=== PATIENT | female | born 1945 | race Caucasian/White ===

== ENCOUNTER 2019-09-19 14:50 | Emergency (ER) | payer MEDICARE, OTHER, SELFPAY ==
[2019-09-19 14:59] VITALS: BP 148/55; PULSE 81; RESP 16; TEMP 36.6; O2SAT 97; BMI 24.5
--- NOTE | 2019-09-19 15:06 | ED_ITS ---
Entered by Marissa Fontaine, acting as scribe for Mara Ordonez DO HPI - Fall General: Chief Complaint: Head Injury Stated Complaint: fall Time Seen by Provider: 09/19/19 14:59 Source: patient Mode of arrival: wheelchair Limitations: no limitations History of Present Illness: HPI Narrative: 73 yo Female presents to ED with complaint of fall. Pt states that she got up to change her bed clothes because she got hot. Pt states that the next thing she knew she was waking up in the floor. Pt states that there was blood everywhere that was coming from her nose. Pt states that she also hit her eye. Pt states that she has a brain stimulator. Pt's family states that the patient falls a lot because of her Parkinson's disease. MD complaint: fall Fall from: standing Fall witnessed: no Place fall occurred: home Loss of consciousness: Yes Prolonged down time: no Symptoms prior to fall: none Location of injury: face Associated symptoms-after fall: Denies abdominal pain, chest pain or headache(s) Review of Systems General: Reports: 10 or more systems reviewed and unremarkable except in HPI and below Const: Denies: fever, chills or fatigue Eyes: Reports: other (bruising to right eye and forehead) ENMT: Denies: throat pain Card: Denies: chest pain or swelling of feet/ankles Resp: Denies: shortness of breath or productive cough GI: Denies: abdominal pain, nausea, vomiting, diarrhea, constipation or blood in stool : Denies: difficulty urinating Musc: Reports: joint pain and joint swelling; Denies: back pain or extremity swelling Skin/Breast: Denies: rash Neuro: Denies: headache, numbness in extremities or weakness in extremities PFS ED PFSH: Medical History Parkinsons disease Social History Smoking and tobacco status: never smoked Physical Exam Const: COMMON NORMALS: no apparent distress and oriented x3 GENERAL APPEARANCE: cooperative; not in distress HENMT: COMMON NORMALS: normocephalic HEAD & SCALP: normal to inspection and normocephalic FACE & SINUS: facial ecchymosis on the right periorbital and forehead NOSE: external nose abnormal (bridge of nose) nasal ecchymosis and nasal tenderness MOUTH: oral and palatal mucosa normal and lip normal THROAT: posterior oropharynx normal and tonsils normal Eye: PERIORBITAL: periorbital findings abnormal positive right periorbital swelling, periorbital tenderness and periorbital ecchymosis Neck/C-Spine: COMMON NORMALS: full ROM, no lymphadenopathy, supple and no meningeal signs GENERAL: Yes normal visual inspection and Yes trachea midline Chest: COMMONS NORMALS: inspection of chest normal Resp: COMMON NORMALS: normal respiratory effort and clear to auscultation bilaterally EFFORT & INSPECTION: Yes able to speak in complete sentences and No respiratory distress AUSCULTATION: clear to auscultation bilaterally, no rales, no rhonchi and no wheezes Cardio: COMMON NORMALS: regular rate, regular rhythm, S1 normal heart sound, S2 normal heart sound and no murmurs RATE: regular rate RHYTHM: regular rhythm HEART SOUNDS: S1 normal and S2 normal PERIPHERAL PULSES: radial pulses present and dorsalis pedis pulses present GI: COMMON NORMALS: normal to inspection, nondistended, normoactive bowel sounds, soft to palpation and non-tender INSPECTION: Yes normal to inspection AUSCULTATION: Yes normoactive bowel sounds PALPATION: Yes soft, No tender, No guarding and No rigid RECTAL EXAM: deferred : COMMON NORMALS: Yes no CVA tenderness BLADDER/KIDNEY EXAM: Yes no CVA tenderness Back/Pelvis: COMMON NORMALS: no CVA tenderness Extremity: COMMON NORMALS: full ROM, normal capillary refill, no calf tenderness and no pedal edema; negative for normal to inspection GENERAL: Yes normal exam except as noted RIGHT LOWER EXTREMITY: Yes knee joint (warmth and eccymosis) Right knee: Yes inspection Neuro: COMMON NORMALS: oriented x3, CN's II-XII intact bilaterally, moves all extremities and no focal motor deficits MENINGEAL SIGNS: Yes no meningeal signs Skin: COMMON NORMALS: no rashes or lesions noted GENERAL SKIN EXAM: no rashes or lesions noted Course Vital Signs: Vital signs: Vital Signs Temperature 97.8 F 09/19/19 14:59 Pulse Rate 81 09/19/19 14:59 Respiratory Rate 16 09/19/19 14:59 Blood Pressure 148/55 09/19/19 14:59 Pulse Oximetry 98 09/19/19 15:09 MDM - Fall Imaging Data^: CT C-Spine: Radiologist's impression: [address] [place] [address] CT Scan Report Signed Patient: Valeri Atkins #: [id number] : 8Acct#:[id number] Age/Sex: 73 / FADM Date: 09/19/19 Loc: ERRoom/Bed: Attending Dr: Ordering Provider/Ordering MD: Mara Ordonez DO Date of Service: 09/19/19 Procedure(s): CT cervical spin wo con* [id number] Accession Number(s): [id number] Report Number: [id number] PROCEDURE INFORMATION: Exam: CT Cervical Spine Without Contrast Exam date and time: 09/19/2019 3:26 PM Age: 73 years old Clinical indication: Injury or trauma; Initial encounter; Blunt trauma; Prior surgery; Surgery date: 6+ months; Surgery type: Brain stim; Patient HX: C/O pain p fall last pm; Additional info: Trauma/pain TECHNIQUE: Imaging protocol: Computed tomography images of the cervical spine without contrast. Total DLP: 378.79 mGy-cm Radiation optimization: All CT scans at this facility use at least one of these dose optimization techniques: automated exposure control; mA and/or kV adjustment per patient size (includes targeted exams where dose is matched to clinical indication); or iterative reconstruction. COMPARISON: CT Cervical Spine wo* [id number] 01/20/2019 2:47 PM FINDINGS: Tubes, catheters and devices: There electrodes along the left occipital scalp with leads extending inferiorly. Vertebrae: Mild grade 1 degenerative anterolisthesis of C4 on C5. Discs/Spinal canal/Neural foramina: There are degenerative changes throughout the visualized spine including marginal osteophyte formations, endplate degenerative changes, and facet arthropathy. These changes are most prominent across the C6-C7 level. Multilevel disc space narrowing. Soft tissues: Unremarkable. Lungs: Lung apices are normal. CT/CT cervical spin wo con* [id number] IMPRESSION: There are degenerative changes as described above. No evidence for acute fracture. Radiation Dose CTDIVOL = (mGy): DLP = 378.79 (mGy-cm) Dictated By:Kaela Yanez MD Signed By:Kaela Yanez MDSigned Date/Time:09/19/19 1601 DD/ 1600 CT Head: Radiologist's impression: [address] [place] [address] CT Scan Report Signed Patient: Valeri Atkins #: [id number] : 8Acct#:[id number] Age/Sex: 73 / FADM Date: 09/19/19 Loc: ERRoom/Bed: Attending Dr: Ordering Provider/Ordering MD: Mara Ordonez DO Date of Service: 09/19/19 Procedure(s): CT head wo con* [id number] Accession Number(s): [id number] Report Number: [id number] PROCEDURE INFORMATION: Exam: CT Head Without Contrast Exam date and time: 09/19/2019 3:26 PM Age: 73 years old Clinical indication: Injury or trauma; Initial encounter; Blunt trauma (contusions or hematomas); Consciousness not specified; Patient HX: C/O MAYBERRY p fall last pm - unknown loc PT is on elequis TECHNIQUE: Imaging protocol: Computed tomography of the head without contrast. Total DLP: 855.51 mGy-cm Radiation optimization: All CT scans at this facility use at least one of these dose optimization techniques: automated exposure control; mA and/or kV adjustment per patient size (includes targeted exams where dose is matched to clinical indication); or iterative reconstruction. COMPARISON: CT head wo con* [id number] 03/26/2019 3:36 PM FINDINGS: Brain: There is mild diffuse cerebral atrophy present, consistent with this patient's age. Periventricular and subcortical white matter low densities are present which at this age likely represent microvascular ischemic change. No evidence for large acute ischemic infarction. Please note acute ischemia can be occult by head CT. Ventricles: Normal. No ventriculomegaly. Bones/joints: There are electrodes implanted in the left temporal and left occipital scalp with leads extending superiorly to alejandro holes in the bifrontal calvarium terminating in the cerebral peduncles. Sinuses: Visualized sinuses are unremarkable. No fluid levels. Mastoid air cells: Visualized mastoid air cells are well aerated. Soft tissues: Unremarkable. Vasculature: Calcified plaque is present within the carotid siphons. CT/CT head wo con* [id number] IMPRESSION: There are senescent changes of the brain as described above. No evidence for large acute ischemic infarction or acute intracranial injury. Radiation Dose CTDIVOL = (mGy): DLP = 855.51 (mGy-cm) Dictated By:Kaela Yanez MD Signed By:Kaela Yanez MDSigned Date/Time:09/19/19 161 DD/ 1610 Coding Level of Care Code ED Toy Consultant for Chg Fwd Exam Comprehensive The documentation recorded by the Minal bolotn Carmen, accurately reflects the service I personally performed and the decisions made by , Mara Ordonez, DO
[2019-09-19 15:09] VITALS: O2SAT 98
--- NOTE | 2019-09-19 15:12 | CTR_ITS ---
PROCEDURE INFORMATION: Exam: CT Cervical Spine Without Contrast Exam date and time: 09/19/2019 3:26 PM Age: 73 years old Clinical indication: Injury or trauma; Initial encounter; Blunt trauma; Prior surgery; Surgery date: 6+ months; Surgery type: Brain stim; Patient HX: C/O pain p fall last pm; Additional info: Trauma/pain TECHNIQUE: Imaging protocol: Computed tomography images of the cervical spine without contrast. Total DLP: 378.79 mGy-cm Radiation optimization: All CT scans at this facility use at least one of these dose optimization techniques: automated exposure control; mA and/or kV adjustment per patient size (includes targeted exams where dose is matched to clinical indication); or iterative reconstruction. COMPARISON: CT Cervical Spine wo* [id number] 01/20/2019 2:47 PM FINDINGS: Tubes, catheters and devices: There electrodes along the left occipital scalp with leads extending inferiorly. Vertebrae: Mild grade 1 degenerative anterolisthesis of C4 on C5. Discs/Spinal canal/Neural foramina: There are degenerative changes throughout the visualized spine including marginal osteophyte formations, endplate degenerative changes, and facet arthropathy. These changes are most prominent across the C6-C7 level. Multilevel disc space narrowing. Soft tissues: Unremarkable. Lungs: Lung apices are normal. CT/CT cervical spin wo con* [id number] IMPRESSION: There are degenerative changes as described above. No evidence for acute fracture. Radiation Dose CTDIVOL = (mGy): DLP = 378.79 (mGy-cm)
--- NOTE | 2019-09-19 15:12 | CTR_ITS ---
PROCEDURE INFORMATION: Exam: CT Head Without Contrast Exam date and time: 09/19/2019 3:26 PM Age: 73 years old Clinical indication: Injury or trauma; Initial encounter; Blunt trauma (contusions or hematomas); Consciousness not specified; Patient HX: C/O MAYBERRY p fall last pm - unknown loc PT is on elequis TECHNIQUE: Imaging protocol: Computed tomography of the head without contrast. Total DLP: 855.51 mGy-cm Radiation optimization: All CT scans at this facility use at least one of these dose optimization techniques: automated exposure control; mA and/or kV adjustment per patient size (includes targeted exams where dose is matched to clinical indication); or iterative reconstruction. COMPARISON: CT head wo con* [id number] 03/26/2019 3:36 PM FINDINGS: Brain: There is mild diffuse cerebral atrophy present, consistent with this patient's age. Periventricular and subcortical white matter low densities are present which at this age likely represent microvascular ischemic change. No evidence for large acute ischemic infarction. Please note acute ischemia can be occult by head CT. Ventricles: Normal. No ventriculomegaly. Bones/joints: There are electrodes implanted in the left temporal and left occipital scalp with leads extending superiorly to alejandro holes in the bifrontal calvarium terminating in the cerebral peduncles. Sinuses: Visualized sinuses are unremarkable. No fluid levels. Mastoid air cells: Visualized mastoid air cells are well aerated. Soft tissues: Unremarkable. Vasculature: Calcified plaque is present within the carotid siphons. CT/CT head wo con* [id number] IMPRESSION: There are senescent changes of the brain as described above. No evidence for large acute ischemic infarction or acute intracranial injury. Radiation Dose CTDIVOL = (mGy): DLP = 855.51 (mGy-cm)
--- NOTE | 2019-09-19 15:12 | XRR_ITS ---
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 Views: 3 views. COMPARISON: [facility] Knee RIGHT 3 views 09/22/2018 4:59 PM FINDINGS: Bones/joints: Normal. Soft tissues: There is edema and/or hematoma in the soft tissues medial and anterior to the knee. XR/XR knee RT 3V* [id number] IMPRESSION: There is edema and/or hematoma in the soft tissues medial and anterior to the knee.
--- NOTE | 2019-09-19 16:44 | PC.NURSE ---
Patient ambulated in hallway without any difficult using walker.
[2019-09-19 17:28] VITALS: BP 145/63; PULSE 72; RESP 17; O2SAT 97
== END 2019-09-19 17:28 | disposition home or self-care (01) ==
LOC: ER 16:49
PROVIDERS: Emergency Provider Emergency Medicine; Family Provider Nurse Practitioner Family; PCP Nurse Practitioner Family
DX: S06.0X9A Concussion with loss of consciousness of unspecified duration, initial encounter (principal); S80.01XA Contusion of right knee, initial encounter; R58 Hemorrhage, not elsewhere classified; W19.XXXA Unspecified fall, initial encounter
CPT/HCPCS: 12345; 29530; 70450; 72125; 73562; 99282; 99283

== ENCOUNTER 2019-12-22 06:18 | Emergency (ER) | payer MEDICARE, OTHER, SELFPAY ==
[2019-12-22 06:25] VITALS: BP 111/71; PULSE 87; RESP 18; TEMP 36.5; O2SAT 98; BMI 24.9
--- NOTE | 2019-12-22 06:38 | W.ED.EXTPRO ---
HPI - Extremity Problem General: Chief complaint: Extremity Problem,Nontraumatic Stated complaint: R LEG PAIN Time Seen by Provider: 12/22/19 06:36 History of Present Illness: HPI Narrative: 74-year-old female presents the emergency room with complaint of left leg pain that began suddenly this morning woke her from sleep. She denies any trauma. She has Parkinson's she has a daughter in the room that states she found her this morning around 1230 laying on the floor in her room patient does not remember falling. She refers most of her pain to her left groin area to reproducible with palpation. She usually walks with a walker daughter says she did seem to be at least partially weightbearing when she helped get her up back into bed last night. She has a history of stroke and atrial fibrillation evidently and states she is on Eliquis she has been taking it regularly she denies any recent change in medications. No swelling in the leg. MD Complaint: extremity pain Onset (ago): hour(s) Pain Consistency: constant Location: right Quality: sharp Radiation: none Relieving factors: movement Exacerbating factors: range of motion, weight bearing and palpation Associated symptoms: Reports no associated symptoms and other (No shortness of breath); Deny chest pain, fever(s), rash or short of breath Context: other (Unattended fall last evening) Review of Systems Const: Denies: fever(s), chills, body aches, change in appetite, fatigue or malaise ENMT: Denies: throat pain, ear or mastoid pain, nasal discharge or nasal congestion Card: Denies: chest pain Resp: Denies: dyspnea, productive cough or non-productive cough GI: Denies: abdominal pain, nausea, vomiting, hematemesis, coffee ground emesis, diarrhea, constipation, bloating, hematochezia or melena : Denies: flank pain, difficulty voiding, dysuria, urinary frequency or urinary urgency Skin/Breast: Denies: rash or pruritus PFS ED PFSH: Medical History (Updated 12/22/19 @ 08:02 by Salty Gomez DO) Parkinsons disease Surgical History (Updated 12/22/19 @ 06:55 by Salty Gomez DO) H/O lumbosacral spine surgery H/O: hysterectomy History of tonsillectomy and adenoidectomy S/P appendectomy S/P deep brain stimulator placement Social History Smoking and tobacco status: never smoked Physical Exam Const: COMMON NORMALS: no acute distress GENERAL APPEARANCE: cooperative and comfortable ORIENTATION/CONSCIOUSNESS: Yes awake, Yes oriented to person, Yes oriented to place and Yes oriented to time Eye: COMMON NORMALS: Equal, round and reactive pupils present, EOMs intact bilaterally, conjunctivae normal and no scleral icterus CONJUNCTIVA: Yes conjunctivae normal PUPIL: Yes Equal, round and reactive pupils present Neck/C-Spine: COMMON NORMALS: full ROM, no lymphadenopathy, supple and no JVD Lymph: LYMPHATIC: no lymphadenopathy noted and no lymphedema noted Resp: COMMON NORMALS: normal respiratory effort, No retractions, No use of accessory muscles and clear to auscultation bilaterally AUSCULTATION: clear to auscultation bilaterally Cardio: COMMON NORMALS: no JVD, regular rate, regular rhythm and No murmurs present (Cardio) RATE: regular rate RHYTHM: regular rhythm GI: COMMON NORMALS: Soft to palpation and No hepatosplenomegaly present AUSCULTATION: Yes normoactive bowel sounds PALPATION: Yes Soft to palpation, No Tenderness to palpation present (GI), No Guarding due to palpation present (GI) and Yes No hepatosplenomegaly present Back/Pelvis: PELVIS: Yes tenderness over symphysis pubis on the right OTHER: Manipulation of the foot ankle tibia and knee are without any significant pain mild pain with manipulation of the hip exquisite pain with palpation over the right pubic rami Extremity: COMMON NORMALS: normal to inspection, capillary refill normal, no clubbing, cyanosis or edema, no calf tenderness and no pedal edema Neuro: SENSORIUM/ORIENTATION: Yes oriented to person, Yes oriented to place and Yes oriented to time Skin: COMMON NORMALS: no rashes or lesions noted GENERAL SKIN EXAM: no rashes or lesions noted Course Vital Signs: Vital signs: Vital Signs Temperature 97.7 F 12/22/19 06:25 Pulse Rate 75 12/22/19 08:15 Respiratory Rate 16 12/22/19 07:12 Blood Pressure 133/67 12/22/19 08:15 Pulse Oximetry 98 12/22/19 08:15 MDM - Extremity (Nontraumatic) MDM Narrative: Medical decision making narrative: Reviewed findings are no acute fractures. Pain patient has pain over greater trochanter. Radiology were reviewed x-ray is negative. Go ahead and discharge home can use tramadol as needed follow-up as needed. Lab Data: Labs: Lab Results 12/22/19 12/22/19 12/22/19 Range/Units 07:06 07:22 07:22 WBC 4.5 (4.0-10.0) 10^3/ uL RBC 3.96 L (4.1-5.3) 10^6/u L Hgb 11.8 (11.5-15.3) g/dL Hct 38.9 (37.0-47.0) % MCV 98.2 (81-99) fL MCH 29.8 (28.0-34.0) pg MCHC 30.3 (30.0-36.0) g/dL RDW 14.0 (12.1-15.1) % Plt Count 222 (130-400) 10^3/c mm MPV 10.5 H (7.4-10.4) fL Neut % (Auto) 47.9 % Lymph % (Auto) 36.0 % [place] % (Auto) 10.8 % Eos % (Auto) 4.0 % Baso % (Auto) 0.9 % Neut # (Auto) 2.1 (1.8-7.7) 10^3/u L Lymph # (Auto) 1.6 (0.8-4.8) 10^3/u L [place] # (Auto) 0.5 (0.2-0.9) 10^3/u L Eos # (Auto) 0.2 (0.0-0.8) 10^3/u L Baso # (Auto) 0.0 (0.0-0.1) 10^3/u L Nucleated RBC % (a uto) 0 % Nucleated RBCs # 0.0 /100WBC Sodium 141 (136-145) mmol/L Potassium 4.2 (3.5-5.1) mmol/L Chloride 103 (98-107) mmol/L Carbon Dioxide 28 (22-29) mmol/L Anion Gap 14.2 (5-19) BUN 23 (8-23) mg/dL Creatinine 1.1 H (0.5-0.9) mg/dL Glucose 95 (65-115) mg/dL Calculated Osmolal ity 289 (285-295) mOsm/k g Calcium 9.3 (8.5-10.5) mg/dL Total Bilirubin 0.2 (0.15-1.2) mg/dL AST 16 (0-32) U/L ALT < 5 (0-33) U/L Alkaline Phosphata se 114 H (35-105) IU/L Total Protein 6.3 L (6.6-8.7) g/dL Albumin 4.2 (3.5-5.2) g/dL Globulin 2.1 (1.3-4.6) g/dL Urine Color Yellow (Yellow) Urine Appearance Clear (CLEAR) Urine pH 7 (5-7) Ur Specific Gravit y 1.005 (1.005-1.030) Urine Protein Neg (Negative) Urine Glucose (UA) Norm (Normal) Urine Ketones Negative (Negative) Urine Blood Neg (Negative) Urine Nitrate Negative (Negative) Urine Bilirubin Neg (NEGATIVE) Urine Urobilinogen Norm (Negative) mg/dL Ur Leukocyte Fariba ase Negative (Negative) Imaging Data^: Xray Ortho: Radiologist's impression: RIGHT HIP HISTORY: Pain/ fall COMPARISON: None available. Right hip: No acute fracture or dislocation. Moderate narrowing of the hip joint. There is soft tissue edema lateral to the greater trochanter. XR/XR hip RT 2-3V wo/w pel* [id number] IMPRESSION: 1. No hip fracture. 2. Soft tissue injury lateral to the greater trochanter. Dictated By:Jen Grigsby DO Discharge Plan Discharge Patient Disposition: Home, Self-Care Clinical Impression: Fall at home, Greater trochanteric pain syndrome of left lower extremity Condition: Stable Prescriptions: No Action gabapentin 600 mg tablet 600 mg PO TID RF: 0 carbidopa-levodopa 50-200 mg tablet extended release 1 tab PO QID RF: 0 Aspir-81 81 mg Tablet,Delayed Release (Dr/Ec) 81 mg PO DAILY RF: 0 tramadol 50 mg tablet 50 mg PO Q4H PRN (Reason: Pain) RF: 0 amantadine HCl 100 mg capsule 100 mg PO BID RF: 0 citalopram 20 mg tablet 20 mg PO DAILY RF: 0 lorazepam 2 mg tablet 1 - 2 mg PO TID PRN (Reason: unknown) RF: 0 ropinirole 2 mg tablet 2 mg PO TID RF: 0 simvastatin 20 mg tablet 20 mg PO BEDTIME RF: 0 nortriptyline 10 mg capsule 10 mg PO BEDTIME RF: 0 omeprazole 20 mg capsule,delayed release(DR/EC) 20 mg PO QPM RF: 0 quetiapine 50 mg tablet 100 mg PO BEDTIME RF: 0 Eliquis 5 mg tablet 5 mg PO BID RF: 0 Discharge Orders: Discharge Order (Routine); Ordered 12/22/19 Ordered By: Salty Gomez Referrals: Rochelle Khan APN [Primary Care Provider] - Discharge Diet: Usual diet Discharge Activity: Resume usual activity Activity Restrictions/Additional Instructions: There are no fractures found on your x-ray. Recommend ice and use previously prescribed outpatient medications for pain control. Discharge Date/Time: 12/22/19 08:15 Coding Level of Care Code ED Spool Fixer for Diana Fwstanley Exam Comprehensive
--- NOTE | 2019-12-22 06:52 | XR_ITS ---
WS: [id number] RIGHT HIP HISTORY: Pain/ fall COMPARISON: None available. Right hip: No acute fracture or dislocation. Moderate narrowing of the hip joint. There is soft tissue edema lateral to the greater trochanter. XR/XR hip RT 2-3V wo/w pel* [id number] IMPRESSION: 1. No hip fracture. 2. Soft tissue injury lateral to the greater trochanter.
[2019-12-22 07:12] VITALS: BP 126/56; RESP 16; O2SAT 97
[2019-12-22 07:13] LABS: Add Urine Microscopic? NO
--- NOTE | 2019-12-22 07:14 | PC.NURSE ---
XR at bedside
[2019-12-22 07:18] LABS: Bilirubin Urine Neg (NEGATIVE); Blood Urine Neg (Negative); Glucose Urine UA Norm (Normal); Ketones Urine Negative (Negative); Leukocyte Esterase Urine Negative (Negative); Nitrate Urine Negative (Negative); Protein Urine Neg (Negative); Specific Gravity, Urine 1.005 (1.005-1.030); Urine Appearance Clear (CLEAR); Urine Color Yellow (Yellow); Urobilinogen Urine Norm (Negative); pH Urine 7 (5-7)
[2019-12-22 07:31] LABS: Basophils % 0.9 %; Eosinophils # 0.2 10^3/uL (0.0-0.8); Hematocrit 38.9 % (37.0-47.0); Hemoglobin 11.8 g/dL (11.5-15.3); Lymphocytes # 1.6 10^3/uL (0.8-4.8); Mean Corpuscular HGB Conc 30.3 g/dL (30.0-36.0); Mean Corpuscular Hemoglobin 29.8 pg (28.0-34.0); Mean Corpuscular Volume 98.2 fL (81-99); Mean Platelet Volume 10.5 fL (7.4-10.4); Monocytes # 0.5 10^3/uL (0.2-0.9); Monocytes % 10.8 %; Neutrophils # 2.1 10^3/uL (1.8-7.7); Neutrophils % 47.9 %; Nucleated Red Blood Cells % 0 %; Platelet Count 222 10^3/cmm (130-400); Red Blood Count 3.96 10^6/uL (4.1-5.3); White Blood Count 4.5 10^3/uL (4.0-10.0)
[2019-12-22 07:49] LABS: Alanine Aminotransferase < 5 U/L (0-33); Albumin Level 4.2 g/dL (3.5-5.2); Alkaline Phosphatase 114 IU/L (35-105); Anion Gap 14.2 (5-19); Aspartate Amino Transferase 16 U/L (0-32); Blood Urea Nitrogen 23 mg/dL (8-23); Calcium 9.3 mg/dL (8.5-10.5); Carbon Dioxide 28 mmol/L (22-29); Chloride 103 mmol/L (98-107); Globulin 2.1 g/dL (1.3-4.6); Glucose 95 mg/dL (65-115); Osmolality Calculated 289 mOsm/kg (285-295); Potassium 4.2 mmol/L (3.5-5.1); Sodium 141 mmol/L (136-145); Total Bilirubin 0.2 mg/dL (0.15-1.2); Total Protein 6.3 g/dL (6.6-8.7)
[2019-12-22] MEDS: HYDROcodone-acetaminophen 5-325 mg Tablet 1 TAB PO (08:12)
[2019-12-22 08:15] VITALS: BP 133/67; PULSE 75; O2SAT 98
== END 2019-12-22 08:15 | disposition home or self-care (01) ==
PROVIDERS: Emergency Provider Family Medicine; Family Provider Nurse Practitioner Family; PCP Nurse Practitioner Family
DX: G89.4 Chronic pain syndrome (principal); M25.552 Pain in left hip; Z79.82 Long term (current) use of aspirin; Z79.01 Long term (current) use of anticoagulants; G20 Parkinson's disease
CPT/HCPCS: 12345; 36415; 73502; 80053; 81003; 85025; 99282; 99283

== ENCOUNTER 2020-01-09 15:11 | Inpatient (IN) | payer MEDICARE, OTHER, SELFPAY ==
[2020-01-09] VITALS (7 sets, daily range): BP systolic 112–196; BP diastolic 41–106; PULSE 67–111; RESP 14–18; TEMP 36.7–37; O2SAT 88–97; BMI 24.0
--- NOTE | 2020-01-09 15:46 | CTR_ITS ---
PROCEDURE INFORMATION: Exam: CT Head Without Contrast Exam date and time: 01/09/2020 3:48 PM Age: 74 years old Clinical indication: Altered mental status/memory loss; Confusion or disorientation; Prior surgery; Surgery date: 6+ months; Surgery type: Patient unable to give this information due to confused state; Additional info: Weakness TECHNIQUE: Imaging protocol: Computed tomography of the head without contrast. Radiation optimization: All CT scans at this facility use at least one of these dose optimization techniques: automated exposure control; mA and/or kV adjustment per patient size (includes targeted exams where dose is matched to clinical indication); or iterative reconstruction. COMPARISON: No relevant prior studies available. RADIATION DOSE METRICS: Total DLP (mGy-cm): 832.59 FINDINGS: Tubes, catheters and devices: There are stimulator leads extending from the cerebral peduncles through the bilateral frontal lobes and frontal calvarium. Brain: Periventricular and subcortical white matter low densities are present which at this age likely represent microvascular ischemic change. Ventricles: Normal. No ventriculomegaly. Bones/joints: Unremarkable. No acute fracture. Sinuses: Visualized sinuses are unremarkable. No fluid levels. Mastoid air cells: Visualized mastoid air cells are well aerated. Soft tissues: Unremarkable. CT/CT head wo con* [id number] IMPRESSION: There are senescent changes of the brain as described above. No evidence for large acute ischemic infarction or acute intracranial injury. Deep brain stimulation leads are present. Radiation Dose CTDIVOL = (mGy): DLP = 832.59 (mGy-cm)
--- NOTE | 2020-01-09 15:46 | XRR_ITS ---
PROCEDURE INFORMATION: Exam: XR Chest, 1 View Exam date and time: 01/09/2020 4:15 PM Age: 74 years old Clinical indication: Other: Weakness TECHNIQUE: Imaging protocol: XR of the chest Views: 1 view. COMPARISON: No relevant prior studies available. FINDINGS: Tubes, catheters and devices: There is a stimulator device overlying the left glenoid. Lungs: Unremarkable. No consolidation. Pleural space: Unremarkable. No pleural effusion. No pneumothorax. Heart/Mediastinum: Unremarkable. No cardiomegaly. Bones/joints: Unremarkable. XR/XR chest 1V portable [id number] IMPRESSION: No acute findings.
--- NOTE | 2020-01-09 15:47 | ECG_ITS ---
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 Measurements Intervals [place] Rate: 70 P: 37 [place]: 199 QRS: -4 QRSD: 118 T: 77 QT: 460 QTc: 498 Interpretive Statements SINUS RHYTHM POSSIBLE ANTERIOR MYOCARDIAL INFARCTION , PROBABLY OLD [30 ms Q WAVE IN V3/V4, OR R < 0.2 mV IN V4] No previous ECG available for comparison Electronically Signed On 01-09-2020 19:08:09 CDT by Jose Dotson M.D. [id number]
--- NOTE | 2020-01-09 15:48 | ED_ITS ---
HPI - Neuro Symptoms/Deficit General: Chief Complaint: Neuro Symptoms/Deficit Stated Complaint: Worsening parkinson's symptoms Time Seen by Provider: 01/09/20 15:22 History of Present Illness: HPI Narrative: Patient has a history of Parkinson's disease. Her caregiver states that usually she is able to ambulate with a walker and also that her speech is quite understandable. For the last 4 days patient has not been able to walk without assistance even when using her walker and her speech has become largely unintelligible. Onset (ago): day(s) Timing confirmed by: family member and caregiver Location: speech and ataxia History of same: No Severity: severe Quality: weak Relieving factors: none Exacerbating factors: none Context: gradual onset and sudden onset Associated symptoms: Reports malaise and weakness Treatments Prior to Arrival: none Review of Systems General: Reports: 10 or more systems reviewed and unremarkable except in HPI and below Const: Reports: malaise Physical Exam Const: COMMON NORMALS: no acute distress, patient oriented x3, no limitations and alert HENMT: COMMON NORMALS: normocephalic, atraumatic, external ears normal and Normal external nose present HEAD & SCALP: normocephalic and atraumatic FACE & SINUS: normal facial exam NOSE: Normal external nose present EXTERNAL EAR: Yes external ears normal MOUTH: Normal oral and palatal mucosa present Neck/C-Spine: COMMON NORMALS: full ROM, no lymphadenopathy, supple, no meningeal signs and no JVD GENERAL: Yes normal visual inspection Resp: COMMON NORMALS: normal respiratory effort, No retractions, No use of accessory muscles and clear to auscultation bilaterally AUSCULTATION: clear to auscultation bilaterally Cardio: COMMON NORMALS: no JVD, regular rate and regular rhythm RATE: regular rate RHYTHM: regular rhythm GI: COMMON NORMALS: Normal to inspection, nondistended, normoactive bowel sounds present, Soft to palpation, non-tender, No hepatosplenomegaly present and no masses INSPECTION: Yes normal to inspection AUSCULTATION: Yes normoactive bowel sounds PALPATION: Yes Soft to palpation and Yes No hepatosplenomegaly present PERCUSSION: normal to percussion : COMMON NORMALS: Yes no CVA tenderness and Yes normal external appearance BLADDER/KIDNEY EXAM: Yes no CVA tenderness Back/Pelvis: COMMON NORMALS: no CVA tenderness, thoracic and lumbar spine normal to inspection, no thoracic nor lumbar tenderness, thoraco-lumbar ROM normal and straight leg raise negative bilaterally Extremity: COMMON NORMALS: normal to inspection, full ROM, capillary refill normal, no joint enlargement, no clubbing, cyanosis or edema, no calf tenderness and no pedal edema Neuro: COMMON NORMALS: patient oriented x3 and moves all extremities SENSORIUM/ORIENTATION: Yes alert MENINGEAL SIGNS: Yes no meningeal signs Psych: COMMON NORMALS: mental status grossly normal, Normal thought process present, cooperative, normal affect and speech normal SPEECH: Yes normal speech THOUGHT PROCESS: Normal thought process present Skin: COMMON NORMALS: no rashes or lesions noted, no wounds, turgor normal, no jaundice, no petechiae and no mottling GENERAL SKIN EXAM: no rashes or lesions noted and turgor normal Course Vital Signs: Vital signs: Vital Signs Temperature 98.1 F 01/09/20 15:25 Pulse Rate 74 01/09/20 15:25 Respiratory Rate 18 01/09/20 15:25 Blood Pressure 116/49 01/09/20 15:25 Pulse Oximetry 97 01/09/20 15:25 Coding Level of Care Code ED Director Consumer Affairs for Chg Connie
--- NOTE | 2020-01-09 16:07 | PC.NURSE ---
Patient to CT via stretcher.
[2020-01-09 16:12] LABS: Basophils % 0.7 %; Eosinophils # 0.1 10^3/uL (0.0-0.8); Hematocrit 37.5 % (37.0-47.0); Hemoglobin 11.4 g/dL (11.5-15.3); Lymphocytes # 1.1 10^3/uL (0.8-4.8); Lymphocytes % 19.5 %; Mean Corpuscular HGB Conc 30.4 g/dL (30.0-36.0); Mean Corpuscular Hemoglobin 29.5 pg (28.0-34.0); Mean Corpuscular Volume 96.9 fL (81-99); Mean Platelet Volume 11.6 fL (7.4-10.4); Monocytes # 0.6 10^3/uL (0.2-0.9); Neutrophils % 67.4 %; Nucleated Red Blood Cells % 0 %; Platelet Count 219 10^3/cmm (130-400); Red Blood Count 3.87 10^6/uL (4.1-5.3); Red Cell Distribution Width 14.4 % (12.1-15.1); White Blood Count 5.5 10^3/uL (4.0-10.0)
[2020-01-09 16:23] LABS: Troponin(5th) Baseline 19 ng/L (0-10)
[2020-01-09] MEDS: haloperidol inj 5 mg/mL INJ 1 mL IVP (16:25)
[2020-01-09 16:38] LABS: Alanine Aminotransferase < 5 U/L (0-33); Albumin Level 4.6 g/dL (3.5-5.2); Alkaline Phosphatase 112 IU/L (35-105); Anion Gap 16.6 (5-19); Aspartate Amino Transferase 21 U/L (0-32); Blood Urea Nitrogen 20 mg/dL (8-23); Calcium 9.4 mg/dL (8.5-10.5); Carbon Dioxide 28 mmol/L (22-29); Chloride 100 mmol/L (98-107); Globulin 1.9 g/dL (1.3-4.6); Glucose 92 mg/dL (65-115); Lipase 24 U/L (13-60); NT Pro B Type Natriuretic Pept 313 pg/mL (0-125); Osmolality Calculated 286 mOsm/kg (285-295); Potassium 4.6 mmol/L (3.5-5.1); Sodium 140 mmol/L (136-145); Total Bilirubin 0.4 mg/dL (0.15-1.2); Total Protein 6.5 g/dL (6.6-8.7)
[2020-01-09 17:17] LABS: Add Urine Microscopic? NO
[2020-01-09 17:19] LABS: Bilirubin Urine Neg (NEGATIVE); Blood Urine Neg (Negative); Glucose Urine UA Norm (Normal); Ketones Urine Negative (Negative); Leukocyte Esterase Urine Negative (Negative); Nitrate Urine Negative (Negative); Protein Urine Neg (Negative); Specific Gravity, Urine 1.015 (1.005-1.030); Urine Appearance Clear (CLEAR); Urine Color Straw (Yellow); Urobilinogen Urine Norm (Negative); pH Urine 7 (5-7)
[2020-01-09 17:46] LABS: Troponin 5 2HR 14.96 ng/L (0-10)
--- NOTE | 2020-01-09 17:47 | ECG_ITS ---
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 Measurements Intervals [place] Rate: 71 P: 55 RI: 211 QRS: 10 QRSD: 116 T: 77 QT: 451 QTc: 493 Interpretive Statements SINUS RHYTHM WITH FIRST DEGREE AV BLOCK LOW QRS VOLTAGE IN PRECORDIAL LEADS [QRS DEFLECTION < 1.0 mV IN CHEST LEADS] MODERATE INTRAVENTRICULAR CONDUCTION DELAY [105+ ms QRS DURATION, 80+ ms Q/S IN V1/V2, NO Q AND 60+ ms R IN I/aVL/V5/V6] PROLONGED QT INTERVAL INTERPRETATION BASED ON A DEFAULT AGE OF 40 YEARS Compared to ECG 01/09/2020 16:08:36 First degree AV block now present Low QRS voltage now present Intraventricular conduction delay now present Prolonged QT interval now present Myocardial infarct finding no longer present Electronically Signed On 01-09-2020 19:11:42 CDT by Jose Dotson M.D. [email or web address] [id number] [place]
[2020-01-09 18:06] LABS: Troponin 5 2HR Delta -4.04 ABS# (0-10)
--- NOTE | 2020-01-09 18:58 | P.HP_ITS ---
Providers/Chief Complaint Admitting Physician: Lexis Ray MD Primary Care Provider: Rochelle Khan APN Chief Complaint: stroke like symptoms History of Present Illness Maria Atkins is a 74 year old female with a past medical history of Parkinson disease, currently on carbidopa levodopa and also with a deep brain stimulator in place, the bacterial culture scheduled to be replaced later in December. She follows with a neurologist Dr. Jensen Aaron at [facility] in [facility]. Over the past week she has had a rapid decline wearing her ataxia and involuntary movements have become worse. They appear to be worsening by dehydration or any minimal stress such as missing a meal. Today the son noted that her speech is more slurred than usual and her face seem to be more asymmetric. Because of her worsening mobility, son is finding it increasingly difficult to take care of her at home. She does also have a history of hallucinations and is currently on Seroquel. She tends to . CT of the head was performed upon presentation which showed senescent changes of the brain without evidence of large acute ischemic infarction or acute intracranial injury. She has a history of several strokes in the past, for which she is currently on Eliquis 5 mg p.o. daily. She normally ambulates with a wheelchair or with assistive support from her son. There have been no recent medication changes. ROS otherwise negative for any fever, contact with known call with patient, cough chest pain dyspnea palpitations or syncope. Review of Systems General: Reports: 10 or more systems reviewed and unremarkable except in HPI and below Const: Denies: fever(s), chills or body aches Eyes: Denies: change in vision, blurry vision or photophobia ENMT: Denies: throat pain, enlarged tonsils, odynophagia, hoarseness or nasal congestion Card: Denies: chest pain, palpitations, irregular heart rhythm, edema, swelling of feet/ankles, lightheadedness, pre-syncope, dyspnea on exertion or orthopnea Resp: Denies: dyspnea, productive cough, non-productive cough, wheezing, stridor, pain on inspiration, change in phlegm color, hemoptysis or chest congestion GI: Denies: abdominal pain, nausea, vomiting, hematemesis, coffee ground emesis, dysphagia, heartburn, diarrhea, constipation, GI cramping, change in stool character, hematochezia or melena : Denies: flank pain, difficulty voiding, dysuria, urinary frequency, urinary urgency, urinary hesitancy or hematuria Musc: Denies: neck pain, back pain, extremity pain, joint swelling, joint warmth or deformity Neuro: Denies: headache(s), numbness in extremities, weakness in extremities, sensory changes, difficulty walking, frequent falls, dizziness, vertigo, behavioral changes, Slurred speech present or seizure-like activity Psych: Denies: anxiety, depression, suicidal ideation or homicidal ideation Endo: Denies: polyuria, polydipsia, tired all the time, cold intolerance or hot flashes Axvier/Lymph: Denies: easy bruising or easy bleeding Medications/Allergies Home Medications Medication Instructions Recorded Confirmed Last Taken Type amantadine HCl 100 mg PO BID 01/09/20 01/09/20 01/08/20 History apixaban [Eliquis] 5 mg PO DAILY 01/09/20 01/09/20 01/08/20 History carbidopa-levodopa 1 tab PO QID 01/09/20 01/09/20 01/09/20 History citalopram 20 mg PO DAILY 01/09/20 01/09/20 01/08/20 History gabapentin 600 mg PO TID 01/09/20 01/09/20 01/09/20 History nortriptyline 10 mg PO BEDTIME 01/09/20 01/09/20 01/08/20 History omeprazole 20 mg PO DAILY 01/09/20 01/09/20 01/09/20 History quetiapine 50 mg PO DAILY 01/09/20 01/09/20 01/08/20 History ropinirole 2 mg PO TID 01/09/20 01/09/20 01/09/20 History simvastatin 20 mg PO DAILY 01/09/20 01/09/20 01/08/20 History tizanidine 4 mg PO DAILY PRN 01/09/20 01/09/20 01/09/20 History tramadol 50 mg PO Q4H PRN 01/09/20 01/09/20 01/09/20 History Allergies Allergy/AdvReac Type Severity Reaction Status Date / Time Sulfa (Sulfonamide Allergy Unknown Unknown Verified 01/09/20 16:53 Antibiotics) PFSH Acute PFSH: Medical History (Updated 01/09/20 @ 19:11 by Lexis Ray MD) Adult failure to thrive Ataxia CVA (cerebral vascular accident) Dysphagia Parkinson's disease Progressive neurologic decline Vitals/I&O/Wt Last Vital Signs Temp 98.1 F 01/09/20 15:25 Pulse 74 01/09/20 15:25 Resp 18 01/09/20 15:25 BP 116/49 01/09/20 15:25 Pulse Ox 97 01/09/20 15:25 Weight last 48 hrs Weight 63.503 kg Physical Exam Narrative: EXAM NARRATIVE: GEN: Awake, alert, speech is slurred with several involuntary jerking movements. Patient appears to be aware if these movements. 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 Multiple coarse jerks and tremors noted. facial asymmetry +, R side of face appears less expressive compared to left. Data : 01/09/20 15:30 01/09/20 15:30 Micro: Microbiology 01/09/20 16:00 Blood Culture - Preliminary Blood SPECIMEN COLLECTED 01/09/20 15:55 Blood Culture - Preliminary Blood SPECIMEN COLLECTED A&P Assessment and plan (1) Adult failure to thrive: Status: Acute (2) Ataxia: Status: Acute (3) Progressive neurologic decline: Status: Acute (4) Parkinson's disease: Status: Acute (5) Dehydration: Status: Acute Additional A&P Information Admit to Med/surg # Advanced Parkinsons' disease with more acute decline over the past week Suspect that advancing disease may the most likely cause, however given h/o recurrent CVAs in the past and relatively newly noted facial asymmetry and worsened dysarthria, cannot r/o CVA. Not a tPA candidate for multiple reasons incl unclear timing of onset and being on chronic anticoagulation with Eliquis. Continue Eliquis, statins for now Continue carbidopa/levodopa at home dose Continue tizanidine Tramadol and prn morphine for pain control Continue quetapine for hallucinations and cognitive symptoms which appear consistent with dementia IV hydration as patient has not had adequate po intake through the week and on exam has dry skin with poor turgor, dry oropharyngeal mucosa and lips. DNR/DNI Dispo: retirement NH placement as family unable to care for her at home due to advancing disease Attestations Medical Necessity Statement*: >2midnight anticipated for progressive neurological disease, IV fluids, disposition Coding Level of Care Code Acute Distance Learning Technician for g Fwd Diagnoses Adult failure to thrive R62.7 Ataxia R27.0 Progressive neurologic decline R29.818 Parkinson's disease G20 Dehydration E86.0
[2020-01-09] MEDS: dextrose 5%-sod chloride 0.9% 1,000 ML 75 ML IV (21:28)
[2020-01-09] MEDS: gabapentin 300 mg Capsule 600 MG PO (21:29)
[2020-01-09] MEDS: carbidopa-levodopa ER 50-200mg Tablet 1 EACH PO (21:29)
[2020-01-09] MEDS: ropinirole 2 mg Tablet PO (21:29)
[2020-01-09] MEDS: nortriptyline 10 mg Capsule PO (21:30)
--- NOTE | 2020-01-09 21:47 | ECG_ITS ---
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 Measurements Intervals [place] Rate: 66 P: 60 IA: 220 QRS: 42 QRSD: 118 T: 85 QT: 462 QTc: 487 Interpretive Statements SINUS RHYTHM WITH FIRST DEGREE AV BLOCK LOW QRS VOLTAGE IN PRECORDIAL LEADS [QRS DEFLECTION < 1.0 mV IN CHEST LEADS] POSSIBLE ANTERIOR MYOCARDIAL INFARCTION [30 ms Q WAVE IN V3/V4, OR R < 0.2 mV IN V4], PROBABLY OLD Compared to ECG 01/09/2020 17:47:36 Myocardial infarct finding now present Intraventricular conduction delay no longer present Prolonged QT interval no longer present Electronically Signed On 01-10-2020 16:42:50 CDT by Jose Dotson M.D. [id number]
[2020-01-09] MEDS: tizanidine 4 mg Tablet PO (22:00)
[2020-01-09 22:24] LABS: Troponin 5 6HR 18.32 ng/L (0-10)
[2020-01-09 22:36] LABS: Troponin 5 6HR Delta -0.68 ng/L (0-12)
[2020-01-10] VITALS: BP 108/52; PULSE 61; RESP 16; TEMP 36.2; O2SAT 92
[2020-01-10 04:00] VITALS: BP 124/54; PULSE 70; RESP 16; TEMP 36.7; O2SAT 93
[2020-01-10 04:08] LABS: Basophils # 0.1 10^3/uL (0.0-0.1); Eosinophils # 0.1 10^3/uL (0.0-0.8); Eosinophils % 2.8 %; Hematocrit 35.5 % (37.0-47.0); Hemoglobin 10.6 g/dL (11.5-15.3); Lymphocytes # 1.2 10^3/uL (0.8-4.8); Lymphocytes % 22.7 %; Mean Corpuscular HGB Conc 29.9 g/dL (30.0-36.0); Mean Platelet Volume 11.3 fL (7.4-10.4); Monocytes # 0.5 10^3/uL (0.2-0.9); Monocytes % 10.7 %; Neutrophils # 3.18 10^3/uL (1.8-7.7); Neutrophils % 62.6 %; Nucleated Red Blood Cells % 0 %; Platelet Count 216 10^3/cmm (130-400); Red Blood Count 3.66 10^6/uL (4.1-5.3); Red Cell Distribution Width 14.1 % (12.1-15.1); White Blood Count 5.1 10^3/uL (4.0-10.0)
[2020-01-10 04:29] LABS: Alanine Aminotransferase < 5 U/L (0-33); Albumin Level 4.1 g/dL (3.5-5.2); Alkaline Phosphatase 97 IU/L (35-105); Anion Gap 11.2 (5-19); Aspartate Amino Transferase 22 U/L (0-32); Blood Urea Nitrogen 15 mg/dL (8-23); Calcium 9.1 mg/dL (8.5-10.5); Carbon Dioxide 31 mmol/L (22-29); Chloride 105 mmol/L (98-107); Globulin 2.4 g/dL (1.3-4.6); Glucose 110 mg/dL (65-115); Osmolality Calculated 293 mOsm/kg (285-295); Potassium 4.2 mmol/L (3.5-5.1); Sodium 143 mmol/L (136-145); Total Bilirubin 0.4 mg/dL (0.15-1.2); Total Protein 6.5 g/dL (6.6-8.7)
[2020-01-10 07:47] VITALS: BP 146/90; PULSE 81; RESP 18; TEMP 36.5; O2SAT 94
[2020-01-10] MEDS: atorvastatin 40 mg Tablet 20 MG PO (08:43)
[2020-01-10] MEDS: ropinirole 2 mg Tablet PO ×2 (08:44→14:58)
[2020-01-10] MEDS: citalopram 20 mg Tablet PO (08:44)
[2020-01-10] MEDS: quetiapine 25 mg Tablet 50 MG PO (08:44)
[2020-01-10] MEDS: gabapentin 300 mg Capsule 600 MG PO ×2 (08:44→14:58)
[2020-01-10] MEDS: pantoprazole DR 40 mg Tablet PO (08:45)
[2020-01-10] MEDS: apixaban 5 mg Tablet PO (08:45)
[2020-01-10] MEDS: carbidopa-levodopa ER 50-200mg Tablet 1 EACH PO ×2 (08:45→14:22)
[2020-01-10] MEDS: dextrose 5%-sod chloride 0.9% 1,000 ML 75 ML IV (10:10)
--- NOTE | 2020-01-10 10:29 | PC.CHAP ---
Pastoral Care Encounter/Spiritual Assessment Type of Contact [] Declined fundraising manager visit [] Patient/Family/Request visit [] Outpatient visit [] Follow-up visit [] Physician referral [] Code/Alert [] Routine visit [] Staff referral [] Actively dying [] Patient sleeping [] Family support [] [] Out of room [] Palliative care [] [] Receiving care in room [] Pre-surgical visit [] Trauma [] Long length of stay [] ICU visit [] Other: Relational/Emotional Strength [] Patient feels connected with others/family/visitors/staff [] Distress [] Loneliness/isolation [] Abandonment Spirituality of Patient [] Person of Leta [] Attends Yazdanism of their Leta [] Believes in Prayer [] Reads Bible or Mandaeism materials [] There are Spiritual issues to be addressed Carpet 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 Supervisor Interventions [] Prayer [] Active listening [] Non-anxious presence [] Spiritual/emotional support [] Crisis/trauma care [] Spiritual counseling [] Bereavement support [] Provided bereavement packet [] Provided Bible/devotional materials [] Provided toy/stuffed animal, coloring book to patient or family member [] Provided Communion [] Anointing/[place] [] Salvation [] Completed spiritual assessment [] Other: Impact on Illness or Injury [] Angry [] Fearful [] Anxious [] Often cries [] Exhaustion [] Unable to work [] Unable to attend congregational [] Unable to walk/stand [] Unable to read [] Unable to drive [] Unable to eat/drink [] Unable to sleep [] Unable to be with family [] Patient intubated [] Other: Summary with doc follow up Time spent with patient
[2020-01-10 11:43] VITALS: BP 129/73; PULSE 68; RESP 18; TEMP 36.6; O2SAT 94
--- NOTE | 2020-01-10 15:05 | PM.DCS ---
Discharge Providers Date of Admission: 01/09/20 18:09 Date of Discharge: January 10, 2020 Attending Provider at Admission: Lexis Ray MD Attending Provider at Discharge: Alexander Galaviz MD Primary Care Provider: Rochelle Khan APN Diagnoses at Discharge Discharge Diagnosis (1) Adult failure to thrive: Status: Acute (2) Ataxia: Status: Acute (3) Progressive neurologic decline: Status: Acute (4) Parkinson's disease: Status: Acute (5) Dehydration: Status: Acute Reason for Visit Reason for Visit: stroke like symptoms Hospital Course Discharge Summary: Maria Atkins is a 74 year old female with a past medical history of Parkinson disease, currently on carbidopa levodopa and also with a deep brain stimulator in place, the battery replacement scheduled to be replaced later in December. She follows with a neurologist Dr. Jensen Aaron at [facility] in [facility]. Over the past week she has had a rapid decline wearing her ataxia and involuntary movements have become worse. They appear to be worsening by dehydration or any minimal stress such as missing a meal. Today the son noted that her speech is more slurred than usual and her face seem to be more asymmetric. Because of her worsening mobility, son is finding it increasingly difficult to take care of her at home. She does also have a history of hallucinations and is currently on Seroquel. She tends to . CT of the head was performed upon presentation which showed senescent changes of the brain without evidence of large acute ischemic infarction or acute intracranial injury. She has a history of several strokes in the past, for which she is currently on Eliquis 5 mg p.o. daily. She normally ambulates with a wheelchair or with assistive support from her son. There have been no recent medication changes. ROS otherwise negative for any fever, contact with known call with patient, cough chest pain dyspnea palpitations or syncope. Her blood work on admission was pretty unremarkable with a white count of 5.5 hemoglobin of 11.4, sodium of 140, creatinine of 1.6(no baseline in the system), alkaline phosphatase of 112, normal troponins, BNP of 313 UA negative for UTI Patient was admitted to the hospital now started on IV fluids for gentle hydration. Her kidney numbers improved and creatinine on discharge was 1.3. For further care and goals of care were discussed with the son. He states he would like to look into placement at long term but does not think he is ready for that right now. For safe discharge and help for son with care of Ms. Atkins home health was discussed and he agreed. Patient's care was also discussed with her outpatient neurosurgeon Dr. Dukes at [facility]. She states she would try to see if she can prepone The appointment for battery replacement. Patient was found to be on Eliquis because of her history of CVA. It was discussed with the son that given her advanced age, advanced parkinsonism she is at a higher risk of hemorrhagic stroke because of a fall rather than a thromboembolic stroke at this time. Son agreed and stated that at this time it would be best if patient is not on Eliquis so the medication has been stopped. As patient was stable, at her baseline no oxygen requirement, hemodynamically stable she was discharged back home with home health with her caregivers son. Physical Exam Narrative: EXAM NARRATIVE: GEN: Awake, alert, speech is slurred with several involuntary jerking movements. Patient appears to be aware if these movements. 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 Multiple coarse jerks and tremors noted. facial asymmetry +, R side of face appears less expressive compared to left. Discharge Data Data Completed and Pending: Completed Studies During Hospitalization Category Date Time Status CT head wo con* [id number] Urgent Cat Scan 01/09/20 15:46 Completed XR chest 1V mckenzie ble [id number] Urgent Exams 01/09/20 15:46 Completed Pending at discharge Category Date Time Status Blood Culture Sta t Lab 01/09/20 16:00 Results Complete Blood Co unt w/Auto AM LABS Lab 01/11/20 04:00 Ordered Complete Blood Co unt w/Auto AM LABS Lab 01/12/20 04:00 Ordered Comprehensive Met abolic Panel AM LA BS Lab 01/11/20 04:00 Ordered Comprehensive Met abolic Panel AM LA BS Lab 01/12/20 04:00 Ordered Labs from last 24 hours 01/10/20 01/10/20 01/09/20 03:31 03:31 21:50 WBC 5.1 RBC 3.66 L Hgb 10.6 L Hct 35.5 L MCV 97.0 MCH 29.0 MCHC 29.9 L RDW 14.1 Plt Count 216 MPV 11.3 H Neut % (Auto) 62.6 Lymph % (Auto) 22.7 [place] % (Auto) 10.7 Eos % (Auto) 2.8 Baso % (Auto) 1.0 Neut # (Auto) 3.18 Lymph # (Auto) 1.2 [place] # (Auto) 0.5 Eos # (Auto) 0.1 Baso # (Auto) 0.1 Nucleated RBC % (a uto) 0 Nucleated RBCs # 0.0 Sodium 143 Potassium 4.2 Chloride 105 Carbon Dioxide 31 H Anion Gap 11.2 BUN 15 Creatinine 1.3 H Glucose 110 Calculated Osmolal ity 293 Lactate Calcium 9.1 Total Bilirubin 0.4 AST 22 ALT < 5 Alkaline Phosphata se 97 Troponin T Baselin e Troponin T 120 Min tangirnaq Delta Troponin T Troponin T Hi Sens 6Hr 18.32 H Troponin T Hi Sens 6Hr Delta -0.68 L NT-Pro-B Natriuret Pep Total Protein 6.5 L Albumin 4.1 Globulin 2.4 Lipase Urine Color Urine Appearance Urine pH Ur Specific Gravit y Urine Protein Urine Glucose (UA) Urine Ketones Urine Blood Urine Nitrate Urine Bilirubin Urine Urobilinogen Ur Leukocyte Fariba ase 01/09/20 01/09/20 01/09/20 17:24 17:02 16:00 WBC RBC Hgb Hct MCV MCH MCHC RDW Plt Count MPV Neut % (Auto) Lymph % (Auto) [place] % (Auto) Eos % (Auto) Baso % (Auto) Neut # (Auto) Lymph # (Auto) [place] # (Auto) Eos # (Auto) Baso # (Auto) Nucleated RBC % (a uto) Nucleated RBCs # Sodium Potassium Chloride Carbon Dioxide Anion Gap BUN Creatinine Glucose Calculated Osmolal ity Lactate 1.0 Calcium Total Bilirubin AST ALT Alkaline Phosphata se Troponin T Baselin e Troponin T 120 Min tangirnaq 14.96 H Delta Troponin T -4.04 L Troponin T Hi Sens 6Hr Troponin T Hi Sens 6Hr Delta NT-Pro-B Natriuret Pep Total Protein Albumin Globulin Lipase Urine Color Straw Urine Appearance Clear Urine pH 7 Ur Specific Gravit y 1.015 Urine Protein Neg Urine Glucose (UA) Norm Urine Ketones Negative Urine Blood Neg Urine Nitrate Negative Urine Bilirubin Neg Urine Urobilinogen Norm Ur Leukocyte Fariba ase Negative 01/09/20 01/09/20 01/09/20 15:30 15:30 15:30 WBC 5.5 RBC 3.87 L Hgb 11.4 L Hct 37.5 MCV 96.9 MCH 29.5 MCHC 30.4 RDW 14.4 Plt Count 219 MPV 11.6 H Neut % (Auto) 67.4 Lymph % (Auto) 19.5 [place] % (Auto) 10.0 Eos % (Auto) 2.0 Baso % (Auto) 0.7 Neut # (Auto) 3.70 Lymph # (Auto) 1.1 [place] # (Auto) 0.6 Eos # (Auto) 0.1 Baso # (Auto) 0.0 Nucleated RBC % (a uto) 0 Nucleated RBCs # 0.0 Sodium 140 Potassium 4.6 Chloride 100 Carbon Dioxide 28 Anion Gap 16.6 BUN 20 Creatinine 1.6 H Glucose 92 Calculated Osmolal ity 286 Lactate Calcium 9.4 Total Bilirubin 0.4 AST 21 ALT < 5 Alkaline Phosphata se 112 H Troponin T Baselin e 19 H Troponin T 120 Min tangirnaq Delta Troponin T Troponin T Hi Sens 6Hr Troponin T Hi Sens 6Hr Delta NT-Pro-B Natriuret Pep 313 H Total Protein 6.5 L Albumin 4.6 Globulin 1.9 Lipase 24 Urine Color Urine Appearance Urine pH Ur Specific Gravit y Urine Protein Urine Glucose (UA) Urine Ketones Urine Blood Urine Nitrate Urine Bilirubin Urine Urobilinogen Ur Leukocyte Fariba ase Vitals: Last Vital Signs Temp 97.9 F 01/10/20 11:43 Pulse 68 01/10/20 11:43 Resp 18 01/10/20 11:43 BP 129/73 01/10/20 11:43 Pulse Ox 94 01/10/20 11:43 Discharge Plan Discharge Patient Disposition: Home Health Service Condition: Fair Prescriptions: New aspirin 81 mg Tablet,Delayed Release (Dr/Ec) 81 mg PO DAILY Qty: 30 RF: 0 Continued gabapentin 600 mg tablet 600 mg PO TID RF: 0 tizanidine 4 mg tablet 4 mg PO DAILY PRN (Reason: muscle spasms) RF: 0 carbidopa-levodopa 50-200 mg tablet extended release 1 tab PO QID RF: 0 tramadol 50 mg tablet 50 mg PO Q4H PRN (Reason: Pain) RF: 0 amantadine HCl 100 mg capsule 100 mg PO BID RF: 0 citalopram 20 mg tablet 20 mg PO DAILY RF: 0 ropinirole 2 mg tablet 2 mg PO TID RF: 0 simvastatin 20 mg tablet 20 mg PO DAILY RF: 0 nortriptyline 10 mg capsule 10 mg PO BEDTIME RF: 0 omeprazole 20 mg capsule,delayed release(DR/EC) 20 mg PO DAILY RF: 0 quetiapine 50 mg tablet 50 mg PO DAILY RF: 0 Discontinued Eliquis 5 mg tablet 5 mg PO DAILY RF: 0 Discharge Orders: Discharge Order (Routine); Ordered 01/10/20 Ordered By: Alexander Galaviz Referrals: Rochelle Khan APN [Primary Care Provider] - Discharge Diet: Advance as tolerated Discharge Activity: Resume usual activity Discharge Attestations Time Spent in Discharge Care*: greater than 30 min Specific Discharge Activities: Specific discharge activities: educating and/or supporting family/caregiver, discussing with pcp/other providers, discussing with field nurse case manager/social workers/dc planners, documenting/other paperwork and evaluating patient/reviewing data Status at Discharge: Cognitive status at discharge: mildly impaired cognition, Behavioral status at discharge: cooperative, Functional status at discharge: other assisted ambulation Overall status at discharge: patient is back to baseline Quality Metrics Clinical Quality Measures During this hospital stay, did patient experience: None Coding Level of Care Code Acute Sales Assistant Entertainment [employer] Media for Diana Rosales Diagnoses Adult failure to thrive R62.7 Ataxia R27.0 Progressive neurologic decline R29.818 Parkinson's disease G20 Dehydration E86.0
[2020-01-10 15:35] VITALS: BP 153/70; PULSE 68; RESP 18; TEMP 36.3; O2SAT 90
--- NOTE | 2020-01-10 17:31 | PC.NURSE ---
PT DISCHARGED TO HOME @ 5288
[2020-01-10 17:32] VITALS: BP 153/70; PULSE 68; RESP 18; TEMP 36.3; O2SAT 90
== END 2020-01-10 17:30 | disposition home health service (06) | DRG 57 ==
LOC: ER 17:29 → MEDSURG 19:49
PROVIDERS: Family Medicine; Admitting Provider Student in an Organized Health Care Education/Training Program; PCP Nurse Practitioner Family; Visit Provider Student in an Organized Health Care Education/Training Program
DX: G20 Parkinson's disease (principal); R62.7 Adult failure to thrive; E86.0 Dehydration; Z96.82 Presence of neurostimulator; Z79.01 Long term (current) use of anticoagulants; Z66 Do not resuscitate; Z86.73 Personal history of transient ischemic attack (TIA), and cerebral infarction without residual deficits
CPT/HCPCS: 12345; 36415; 70450; 71045; 80053; 81003; 83605; 83690; 83880; 84484; 85025; 87040; 93005; 96375; 97161; 97166; 97530; 99284; J1630

== ENCOUNTER 2021-01-27 14:43 | Emergency (ER) | payer MEDICARE, OTHER, SELFPAY ==
[2021-01-27 14:47] VITALS: BMI 24.9
[2021-01-27 14:54] LABS: Glucose Point of Care 118 mg/dL (70-110)
--- NOTE | 2021-01-27 14:54 | W.ED.NEUROSD ---
HPI - Neuro Symptoms/Deficit General: Chief Complaint: Neuro Symptoms/Deficit Stated Complaint: AMS; LEFT FACIAL DROOP Time Seen by Provider: 01/27/21 14:48 History of Present Illness: HPI Narrative: 75-year-old female presents emergency room with report of altered mental status. Patient has a history of Parkinson's has a deep brain stimulator who is also on Eliquis. Onset (ago): hour(s) (3.5) Time: 14:44 Last Observed Normal: 11:30 Timing confirmed by: family member History of same: No Quality: weak Relieving factors: none Exacerbating factors: none Context: other (Found altered by family member last known well 1130.) Associated symptoms: Deny chest pain, cough, diaphoresis, fevers/chills, headache(s), anorexia, malaise, nausea, seizures, short of breath, syncope, tingling, vertigo, vomiting or weakness Treatments Prior to Arrival: none Review of Systems Const: Denies: malaise or diaphoresis ENMT: Denies: throat pain, ear or mastoid pain, nasal discharge or nasal congestion Card: Denies: chest pain or syncope Resp: Denies: dyspnea, productive cough or non-productive cough GI: Denies: nausea or vomiting : Denies: flank pain, difficulty voiding, dysuria, urinary frequency or urinary urgency Skin/Breast: Denies: rash or pruritus Neuro: Denies: headache(s) or vertigo PFSH ED PFSH: Medical History Adult failure to thrive Ataxia CVA (cerebral vascular accident) Dysphagia Parkinson's disease Parkinsons disease Progressive neurologic decline Surgical History H/O lumbosacral spine surgery H/O: hysterectomy History of tonsillectomy and adenoidectomy S/P appendectomy S/P deep brain stimulator placement Social History Smoking and tobacco status: never smoked NIH stroke score NIHSS: Level Of Consciousness - 1a: 0 Level Of Consciousness Questions - 1b: Both Correct Level Of Consciousness Commands - 1c: Both Correct Best Gaze - 2: Normal Visual Arshad - 3: No Visual Loss Facial Palsy - 4: Normal Motor Arm Right - 5: No Drift Motor Arm Left - 5: No Drift Motor Leg Right - 6: No Drift Motor Leg Left - 6: No Drift Limb Ataxia - 7: Present In One Limb Sensory - 8: Normal Best Language - 9: Mild/Moderate Aphasia Dysarthia - 10: Mild/Moderate Dysarthia Extinction And Inattention - 11: 0 Score: Total Score: 3 Physical Exam Const: COMMON NORMALS: no acute distress GENERAL APPEARANCE: cooperative and comfortable ORIENTATION/CONSCIOUSNESS: Yes awake HENMT: COMMON NORMALS: normocephalic, atraumatic and hearing grossly normal bilaterally HEAD & SCALP: normocephalic and atraumatic Eye: COMMON NORMALS: Equal, round and reactive pupils present, EOMs intact bilaterally, conjunctivae normal and no scleral icterus CONJUNCTIVA: Yes conjunctivae normal PUPIL: Yes Equal, round and reactive pupils present Neck/C-Spine: COMMON NORMALS: no JVD Resp: COMMON NORMALS: normal respiratory effort, No retractions, No use of accessory muscles and clear to auscultation bilaterally AUSCULTATION: clear to auscultation bilaterally Cardio: COMMON NORMALS: no JVD, regular rate, regular rhythm and No murmurs present (Cardio) RATE: regular rate RHYTHM: regular rhythm GI: COMMON NORMALS: Soft to palpation and No hepatosplenomegaly present AUSCULTATION: Yes normoactive bowel sounds PALPATION: Yes Soft to palpation, No Tenderness to palpation present (GI), No Guarding due to palpation present (GI) and Yes No hepatosplenomegaly present Extremity: COMMON NORMALS: normal to inspection, capillary refill normal, no clubbing, cyanosis or edema, no calf tenderness and no pedal edema Skin: COMMON NORMALS: no rashes or lesions noted GENERAL SKIN EXAM: no rashes or lesions noted Course Vital Signs: Vital signs: Vital Signs Pulse Rate 65 01/27/21 17:31 Respiratory Rate 16 01/27/21 17:31 Blood Pressure 123/59 01/27/21 17:31 Pulse Oximetry 95 01/27/21 17:31 MDM - Neuro Symptoms/Deficit MDM Narrative: Medical decision making narrative: Most of her symptoms appear to be from her Parkinson's. We discussed different options patient and the family would rather just go home at this point. She cannot get an MRI because of her deep brain stimulator. She has no significant apparent neuro deficits at this time. Turn if has further problems. Lab Data: Labs: Lab Results 01/27/21 01/27/21 01/27/21 Range/Units 14:51 14:57 14:57 WBC 10.4 H (4.0-10.0) 10^3/ uL RBC 3.69 L (4.1-5.3) 10^6/u L Hgb 11.1 L (11.5-15.3) g/dL Hct 36.2 L (37.0-47.0) % MCV 98.1 (81-99) fL MCH 30.1 (28.0-34.0) pg MCHC 30.7 (30.0-36.0) g/dL RDW 13.3 (12.1-15.1) % Plt Count 237 (130-400) 10^3/c mm MPV 11.8 H (7.4-10.4) fL Neut % (Auto) 80.4 % Lymph % (Auto) 9.4 % [place] % (Auto) 6.4 % Eos % (Auto) 3.0 % Baso % (Auto) 0.5 % Neut # (Auto) 8.39 H (1.8-7.7) 10^3/u L Lymph # (Auto) 1.0 (0.8-4.8) 10^3/u L [place] # (Auto) 0.7 (0.2-0.9) 10^3/u L Eos # (Auto) 0.3 (0.0-0.8) 10^3/u L Baso # (Auto) 0.1 (0.0-0.1) 10^3/u L Nucleated RBC % (a uto) 0 % Nucleated RBCs # 0.0 /100WBC PT 14.30 (12.1-14.9) SECO NDS INR 1.08 (0.8-1.2) APTT 29.9 (23.9-36.7) SECO NDS Sodium (136-145) mmol/L Potassium (3.5-5.1) mmol/L Chloride (98-107) mmol/L Carbon Dioxide (22-29) mmol/L Anion Gap (5-19) BUN (8-23) mg/dL Creatinine (0.5-0.9) mg/dL GFR Calculation Glucose (65-115) mg/dL POC Glucose 118 H (70-110) mg/dL Calculated Osmolal ity (285-295) mOsm/k g Calcium (8.5-10.5) mg/dL Total Bilirubin (0.15-1.2) mg/dL AST (0-32) U/L ALT (0-33) U/L Alkaline Phosphata se (35-105) IU/L Total Protein (6.6-8.7) g/dL Albumin (3.5-5.2) g/dL Globulin (1.3-4.6) g/dL Urine Color (Yellow) Urine Appearance (CLEAR) Urine pH (5-7) Ur Specific Gravit y (1.005-1.030) Urine Protein (Negative) Urine Glucose (UA) (Normal) Urine Ketones (Negative) Urine Blood (Negative) Urine Nitrate (Negative) Urine Bilirubin (Negative) Urine Urobilinogen (Negative) mg/dL Ur Leukocyte Fariba ase (Negative) 01/27/21 01/27/21 Range/Units 14:57 17:25 WBC (4.0-10.0) 10^3/ uL RBC (4.1-5.3) 10^6/u L Hgb (11.5-15.3) g/dL Hct (37.0-47.0) % MCV (81-99) fL MCH (28.0-34.0) pg MCHC (30.0-36.0) g/dL RDW (12.1-15.1) % Plt Count (130-400) 10^3/c mm MPV (7.4-10.4) fL Neut % (Auto) % Lymph % (Auto) % [place] % (Auto) % Eos % (Auto) % Baso % (Auto) % Neut # (Auto) (1.8-7.7) 10^3/u L Lymph # (Auto) (0.8-4.8) 10^3/u L [place] # (Auto) (0.2-0.9) 10^3/u L Eos # (Auto) (0.0-0.8) 10^3/u L Baso # (Auto) (0.0-0.1) 10^3/u L Nucleated RBC % (a uto) % Nucleated RBCs # /100WBC PT (12.1-14.9) SECO NDS INR (0.8-1.2) APTT (23.9-36.7) SECO NDS Sodium 136 (136-145) mmol/L Potassium 4.7 (3.5-5.1) mmol/L Chloride 102 (98-107) mmol/L Carbon Dioxide 26 (22-29) mmol/L Anion Gap 12.7 (5-19) BUN 21 (8-23) mg/dL Creatinine 1.5 H (0.5-0.9) mg/dL GFR Calculation Not Reportable Glucose 113 (65-115) mg/dL POC Glucose (70-110) mg/dL Calculated Osmolal ity 286 (285-295) mOsm/k g Calcium 8.3 L (8.5-10.5) mg/dL Total Bilirubin 0.2 (0.15-1.2) mg/dL AST 20 (0-32) U/L ALT < 5 (0-33) U/L Alkaline Phosphata se 90 (35-105) IU/L Total Protein 6.1 L (6.6-8.7) g/dL Albumin 3.8 (3.5-5.2) g/dL Globulin 2.3 (1.3-4.6) g/dL Urine Color Straw (Yellow) Urine Appearance Clear (CLEAR) Urine pH 7 (5-7) Ur Specific Gravit y 1.005 (1.005-1.030) Urine Protein Neg (Negative) Urine Glucose (UA) Norm (Normal) Urine Ketones Negative (Negative) Urine Blood Neg (Negative) Urine Nitrate Negative (Negative) Urine Bilirubin Neg (Negative) Urine Urobilinogen Norm (Negative) mg/dL Ur Leukocyte Fariba ase Negative (Negative) Discharge Plan Discharge Patient Disposition: Home Clinical Impression: Parkinson's disease, Progressive neurologic decline, Ataxia, Adult failure to thrive, Dysphagia Condition: Stable Prescriptions: No Action gabapentin 600 mg tablet 600 mg PO TID RF: 0 tizanidine 4 mg tablet 4 mg PO DAILY PRN (Reason: muscle spasms) RF: 0 carbidopa-levodopa 50-200 mg tablet extended release 1 tab PO QID RF: 0 ropinirole 2 mg tablet 2 mg PO TID RF: 0 oxybutynin chloride 15 mg tablet extended release 24 hr 15 mg PO DAILY RF: 0 hydrocodone-acetaminophen 10-325 mg tablet 0.5 - 1 tab PO BID PRN (Reason: Pain) RF: 0 pantoprazole 40 mg tablet,delayed release (DR/EC) 40 mg PO BID RF: 0 amantadine HCl 100 mg capsule 100 mg PO QAM RF: 0 tramadol 50 mg tablet 50 mg PO Q4H PRN (Reason: Pain) RF: 0 lorazepam 2 mg tablet 4 mg PO BEDTIME RF: 0 Discharge Orders: Discharge ED (Routine); Ordered 01/27/21 Ordered By: Salty Gomez Referrals: Khan,MARIBETH ByrdN [Primary Care Provider] - Discharge Diet: Usual diet Discharge Activity: Resume usual activity Patient Instructions: Opioid Safety Coding Level of Care Code ED Databases Software Consultant for Diana Fwd Exam Comprehensive
--- NOTE | 2021-01-27 14:58 | CTR_ITS ---
PROCEDURE INFORMATION: Exam: CT Head Without Contrast Exam date and time: 01/27/2021 2:58 PM Age: 75 years old Clinical indication: Altered mental status/memory loss; Confusion or disorientation; Additional info: AMS; Left facial droop TECHNIQUE: Imaging protocol: Computed tomography of the head without contrast. Radiation optimization: All CT scans at this facility use at least one of these dose optimization techniques: automated exposure control; mA and/or kV adjustment per patient size (includes targeted exams where dose is matched to clinical indication); or iterative reconstruction. COMPARISON: CT head wo con* [id number] 01/09/2020 3:59 PM RADIATION DOSE METRICS: Total DLP (mGy-cm): 911.66 FINDINGS: Tubes, catheters and devices: Deep brain stimulator leads are similar to the prior study. Brain: Periventricular and subcortical white matter low densities are present which at this age likely represent microvascular ischemic change. There is diffuse cerebral atrophy present, consistent with this patient's age. No evidence for large acute ischemic infarction. Please note acute ischemia can be occult by head CT. Cerebral ventricles: No ventriculomegaly. Paranasal sinuses: Visualized sinuses are unremarkable. No fluid levels. Mastoid air cells: Visualized mastoid air cells are well aerated. Bones/joints: Unremarkable. No acute fracture. Soft tissues: Unremarkable. CT/CT head wo con* [id number] IMPRESSION: No acute findings.There are senescent changes of the brain as described above. No evidence for large acute ischemic infarction or acute intracranial injury. Radiation Dose CTDIVOL = (mGy): DLP = 911.66 (mGy-cm)
[2021-01-27 15:03] VITALS: O2SAT 95
--- NOTE | 2021-01-27 15:31 | ECG_ITS ---
[facility] Test Date: 2021-01-27 Pat Name: Maria Atkins Department: Room: Gender: Female Quality Assurance Lead: : 1945 Requested By: Salty Busby Order Number: [id number] Reading MD: WILL GONZALEZ Measurements Intervals [place] Rate: 68 P: 59 [place]: 225 QRS: 58 QRSD: 122 T: 80 QT: 467 QTc: 498 Interpretive Statements SINUS RHYTHM WITH FIRST DEGREE AV BLOCK ANTEROSEPTAL MYOCARDIAL INFARCTION [40+ ms Q WAVE IN V1-V4], OF INDETERMINATE AGE Compared to ECG 03/26/2019 16:40:12 First degree AV block now present Myocardial infarct finding now present T-wave abnormality no longer present Electronically Signed On 01-27-2021 20:28:05 CDT by WILL GONZALEZ [id number]
[2021-01-27 15:42] VITALS: BP 108/67; PULSE 69; RESP 18; O2SAT 95
[2021-01-27 16:29] LABS: INR 1.08 (0.8-1.2)
[2021-01-27 16:31] LABS: Partial Thromboplastin Time 29.9 SECONDS (23.9-36.7)
[2021-01-27 16:35] LABS: Alanine Aminotransferase < 5 U/L (0-33); Albumin Level 3.8 g/dL (3.5-5.2); Alkaline Phosphatase 90 IU/L (35-105); Anion Gap 12.7 (5-19); Aspartate Amino Transferase 20 U/L (0-32); Blood Urea Nitrogen 21 mg/dL (8-23); Calcium 8.3 mg/dL (8.5-10.5); Carbon Dioxide 26 mmol/L (22-29); Chloride 102 mmol/L (98-107); Globulin 2.3 g/dL (1.3-4.6); Glucose 113 mg/dL (65-115); Osmolality Calculated 286 mOsm/kg (285-295); Potassium 4.7 mmol/L (3.5-5.1); Sodium 136 mmol/L (136-145); Total Bilirubin 0.2 mg/dL (0.15-1.2); Total Protein 6.1 g/dL (6.6-8.7)
--- NOTE | 2021-01-27 16:39 | PC.PHAR ---
PTS FAMILY VERIFIED MEDICATIONS AND BROUGHT IN MED BOTTLES-STATES THE PT HASNT TAKEN ASPIRIN IN MONTHS-STATES THE PT IS NOT TAKING ZOCOR EXT MED HISTORY SHOWS LAST FILLED 12/30/20 90D/S-NOTES ARE MADE IN THE PHARMACY COMMENTS
[2021-01-27 16:41] LABS: Basophils # 0.1 10^3/uL (0.0-0.1); Basophils % 0.5 %; Eosinophils # 0.3 10^3/uL (0.0-0.8); Hematocrit 36.2 % (37.0-47.0); Hemoglobin 11.1 g/dL (11.5-15.3); Lymphocytes % 9.4 %; Mean Corpuscular HGB Conc 30.7 g/dL (30.0-36.0); Mean Corpuscular Hemoglobin 30.1 pg (28.0-34.0); Mean Corpuscular Volume 98.1 fL (81-99); Mean Platelet Volume 11.8 fL (7.4-10.4); Monocytes # 0.7 10^3/uL (0.2-0.9); Monocytes % 6.4 %; Neutrophils # 8.39 10^3/uL (1.8-7.7); Neutrophils % 80.4 %; Nucleated Red Blood Cells % 0 %; Platelet Count 237 10^3/cmm (130-400); Red Blood Count 3.69 10^6/uL (4.1-5.3); Red Cell Distribution Width 13.3 % (12.1-15.1); White Blood Count 10.4 10^3/uL (4.0-10.0)
[2021-01-27 16:45] VITALS: BP 115/68; PULSE 67; RESP 16; O2SAT 95
[2021-01-27 17:31] VITALS: BP 123/59; PULSE 65; RESP 16; O2SAT 95
[2021-01-27 17:37] LABS: Add Urine Microscopic? NO; Charge for UA Resulting for Rev
[2021-01-27 18:14] LABS: Bilirubin Urine Neg (Negative); Blood Urine Neg (Negative); Glucose Urine UA Norm (Normal); Ketones Urine Negative (Negative); Leukocyte Esterase Urine Negative (Negative); Nitrate Urine Negative (Negative); Protein Urine Neg (Negative); Specific Gravity, Urine 1.005 (1.005-1.030); Urine Appearance Clear (CLEAR); Urine Color Straw (Yellow); Urobilinogen Urine Norm (Negative); pH Urine 7 (5-7)
== END 2021-01-27 18:33 | disposition home or self-care (01) ==
PROVIDERS: Emergency Provider Family Medicine; PCP Nurse Practitioner Family
DX: G20 Parkinson's disease (principal); R27.0 Ataxia, unspecified; R62.7 Adult failure to thrive; R13.10 Dysphagia, unspecified; Z79.01 Long term (current) use of anticoagulants; Z86.73 Personal history of transient ischemic attack (TIA), and cerebral infarction without residual deficits; Z96.82 Presence of neurostimulator; Z68.24 Body mass index [BMI] 24.0-24.9, adult
CPT/HCPCS: 36416; 70450; 80053; 81003; 82962; 85025; 85610; 85730; 93005; 99284

== ENCOUNTER 2021-02-08 14:40 | Emergency (ER) | payer MEDICARE, OTHER, SELFPAY ==
[2021-02-08 14:50] VITALS: BP 135/53; PULSE 75; RESP 20; TEMP 36.4; O2SAT 97; BMI 24.0
--- NOTE | 2021-02-08 14:56 | XR_ITS ---
WS: [id number] Portable AP upright chest, 02/08/2021 Clinical Data: CP Comparison: Portable chest, 01/09/2020. Findings: No nodules, masses or effusions are seen. The heart is normal. The pulmonary vascularity is not increased. No pneumonia or pneumothorax is seen. The aortic arch and descending aorta shows mild tortuosity. There is a generator overlying the left axilla with wires leading superiorly. Monitor le ads are on the chest wall. There are clips in the right upper quadrant from a cholecystectomy. XR/XR chest 1V portable [id number] Impression: Atherosclerosis.
--- NOTE | 2021-02-08 14:56 | ECG_ITS ---
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 Manager: : 1945 Requested By: Isidra Dias I Order Number: [id number] Reading MD: WILL GONZALEZ Measurements Intervals [place] Rate: 77 P: 59 FL: 198 QRS: 53 QRSD: 111 T: 79 QT: 410 QTc: 466 Interpretive Statements SINUS RHYTHM SEPTAL MYOCARDIAL INFARCTION [40+ ms Q WAVE IN V1/V2], OF INDETERMINATE AGE Compared to ECG 01/27/2021 16:03:55 First degree AV block no longer present Myocardial infarct finding still present Electronically Signed On 02-08-2021 21:22:09 CDT by WILL GONZALEZ [id number]
--- NOTE | 2021-02-08 14:58 | ED_ITS ---
HPI - Chest Pain General: Chief Complaint: Chest Pain Stated Complaint: CHEST PAIN Time Seen by Provider: 02/08/21 14:48 Source: patient and EMS Mode of arrival: EMS Limitations: no limitations History of Present Illness: HPI narrative: This is a 75-year-old woman with a history of coronary artery disease who presents to the emergency department with complaints of chest pain. Pain started about 30 minutes ago and started on the left side of her chest and radiates to the right side on her right shoulder and also radiates to her back. She has some dizziness and nausea but no vomiting. She denies any diaphoresis. She was given two sublingual nitroglycerin tablets at home which have helped the pain. In the ambulance she was given 324 mg of aspirin. She is here to be evaluated for the pain. MD complaint: chest pain Pertinent past history: coronary artery disease and prior ND Onset (ago): minute(s) (30) Timing of current episode: constant Prior episodes: No Onset: during rest Pain location: left chest Pain radiation: back and right shoulder Severity: moderate Quality: sharp Relieving factors: nitroglycerin Exacerbating factors: nothing Associated symptoms: Reports nausea; Deny abdominal pain, diaphoresis, dyspnea, fever(s), leg edema, palpitations, sense of impending doom, syncope or vomiting Treatment prior to arrival: aspirin and nitroglycerin Review of Systems General: Reports: 10 or more systems reviewed and unremarkable except in HPI and below Const: Denies: fever(s) or diaphoresis Card: Denies: palpitations or syncope Resp: Denies: dyspnea GI: Reports: nausea; Denies: abdominal pain or vomiting [facility] ED PFSH: Medical History Adult failure to thrive Ataxia CVA (cerebral vascular accident) Dysphagia Parkinson's disease Parkinsons disease Progressive neurologic decline Surgical History H/O lumbosacral spine surgery H/O: hysterectomy History of tonsillectomy and adenoidectomy S/P appendectomy S/P deep brain stimulator placement Social History Smoking and tobacco status: never smoked Physical Exam Const: COMMON NORMALS: no acute distress, average body habitus, patient oriented x3, no limitations, healthy appearing, alert and well nourished HENMT: COMMON NORMALS: normocephalic, atraumatic and moist oral mucous m embranes HEAD & SCALP: normocephalic and atraumatic Neck/C-Spine: COMMON NORMALS: no meningeal signs and no JVD Chest: COMMONS NORMALS: normal inspection of the chest and normal palpation of entire chest wall Resp: COMMON NORMALS: normal respiratory effort, No retractions, No use of accessory muscles, clear to auscultation bilaterally and percussion normal AUSCULTATION: clear to auscultation bilaterally PERCUSSION: percussion normal Cardio: COMMON NORMALS: no JVD, regular rate, regular rhythm, S1 normal heart sound present, S2 normal heart sound present, No gallops present (Cardio), No clicks present (Cardio), No murmurs present (Cardio), No rub (Cardio) and Peripheral pulses 2+ throughout RATE: regular rate RHYTHM: regular rhythm HEART SOUNDS: S1 normal heart sound present and S2 normal heart sound present PERIPHERAL PULSES: Peripheral pulses 2+ throughout GI: COMMON NORMALS: Normal to inspection, nondistended, normoactive bowel sounds present, Soft to palpation, non-tender, No hepatosplenomegaly present, no masses and no bruits PALPATION: Yes Soft to palpation and Yes No hepatosplenomegaly present Extremity: COMMON NORMALS: normal to inspection, full ROM, capillary refill normal, no calf tenderness and no pedal edema Neuro: COMMON NORMALS: patient oriented x3 SENSORIUM/ORIENTATION: Yes alert MENINGEAL SIGNS: Yes no meningeal signs Skin: COMMON NORMALS: no rashes or lesions noted, no wounds, turgor normal, no jaundice, no petechiae and no mottling GENERAL SKIN EXAM: no rashes or lesions noted and turgor normal Course Reevaluation(s): Reevaluation #1: Discussed her lab and imaging findings with her. Negative for acute findings. Negative high-sensitivity troponin delta at 2 hours. She will be discharged home with no new orders. She voiced understanding and is in agreement with the plan. Time: 19:00 Vital Signs: Vital signs: Vital Signs Temperature 97.6 F 02/08/21 14:50 Pulse Rate 69 02/08/21 19:10 Respiratory Rate 12 02/08/21 19:10 Blood Pressure 120/58 02/08/21 19:10 Pulse Oximetry 97 02/08/21 19:10 MDM - Chest Pain MDM Narrative: Medical decision making narrative: 75-year-old female patient who presents to the emergency department with chest pain. Evaluation in the emergency department is unremarkable. She has a flat 2-hour high-sensitivity troponin delta. Baseline troponin only mildly elevated. Other work-up unremarkable. She is discharged home with no new orders. Lab Data: Labs: Lab Results 02/08/21 02/08/21 02/08/21 Range/Units 15:14 15:14 15:14 WBC 6.8 (4.0-10.0) 10^3/ uL RBC 3.92 L (4.1-5.3) 10^6/u L Hgb 11.7 (11.5-15.3) g/dL Hct 37.4 (37.0-47.0) % MCV 95.4 (81-99) fL MCH 29.8 (28.0-34.0) pg MCHC 31.3 (30.0-36.0) g/dL RDW 13.1 (12.1-15.1) % Plt Count 233 (130-400) 10^3/c mm MPV 11.1 H (7.4-10.4) fL Neut % (Auto) 59.2 % Lymph % (Auto) 25.7 % [place] % (Auto) 6.9 % Eos % (Auto) 6.1 % Baso % (Auto) 1.8 % Neut # (Auto) 4.01 (1.8-7.7) 10^3/u L Lymph # (Auto) 1.7 (0.8-4.8) 10^3/u L [place] # (Auto) 0.5 (0.2-0.9) 10^3/u L Eos # (Auto) 0.4 (0.0-0.8) 10^3/u L Baso # (Auto) 0.1 (0.0-0.1) 10^3/u L Nucleated RBC % (a uto) 0 % Nucleated RBCs # 0.0 /100WBC Sodium 141 (136-145) mmol/L Potassium 4.4 (3.5-5.1) mmol/L Chloride 104 (98-107) mmol/L Carbon Dioxide 29 (22-29) mmol/L Anion Gap 12.4 (5-19) BUN 21 (8-23) mg/dL Creatinine 1.0 H (0.5-0.9) mg/dL GFR Calculation Not Reportable Glucose 94 (65-115) mg/dL Calculated Osmolal ity 295 (285-295) mOsm/k g Calcium 8.8 (8.5-10.5) mg/dL Total Bilirubin 0.2 (0.15-1.2) mg/dL AST 15 (0-32) U/L ALT < 5 (0-33) U/L Alkaline Phosphata se 104 (35-105) IU/L Troponin T Baselin e 13 H (0-10) ng/L Troponin T 120 Min [place] (0-10) ng/L Delta Troponin T (0-10) ABS# NT-Pro-B Natriuret Pep 233 H (0-125) pg/mL Total Protein 6.2 L (6.6-8.7) g/dL Albumin 4.0 (3.5-5.2) g/dL Globulin 2.2 (1.3-4.6) g/dL Lipase 40 (13-60) U/L /06/19 Range/Units 17:06 WBC (4.0-10.0) 10^3/ uL RBC (4.1-5.3) 10^6/u L Hgb (11.5-15.3) g/dL Hct (37.0-47.0) % MCV (81-99) fL MCH (28.0-34.0) pg MCHC (30.0-36.0) g/dL RDW (12.1-15.1) % Plt Count (130-400) 10^3/c mm MPV (7.4-10.4) fL Neut % (Auto) % Lymph % (Auto) % [place] % (Auto) % Eos % (Auto) % Baso % (Auto) % Neut # (Auto) (1.8-7.7) 10^3/u L Lymph # (Auto) (0.8-4.8) 10^3/u L [place] # (Auto) (0.2-0.9) 10^3/u L Eos # (Auto) (0.0-0.8) 10^3/u L Baso # (Auto) (0.0-0.1) 10^3/u L Nucleated RBC % (a uto) % Nucleated RBCs # /100WBC Sodium (136-145) mmol/L Potassium (3.5-5.1) mmol/L Chloride (98-107) mmol/L Carbon Dioxide (22-29) mmol/L Anion Gap (5-19) BUN (8-23) mg/dL Creatinine (0.5-0.9) mg/dL GFR Calculation Glucose (65-115) mg/dL Calculated Osmolal ity (285-295) mOsm/k g Calcium (8.5-10.5) mg/dL Total Bilirubin (0.15-1.2) mg/dL AST (0-32) U/L ALT (0-33) U/L Alkaline Phosphata se (35-105) IU/L Troponin T Baselin e (0-10) ng/L Troponin T 120 Min [place] 12.70 H (0-10) ng/L Delta Troponin T -0.30 L (0-10) ABS# NT-Pro-B Natriuret Pep (0-125) pg/mL Total Protein (6.6-8.7) g/dL Albumin (3.5-5.2) g/dL Globulin (1.3-4.6) g/dL Lipase (13-60) U/L Imaging Data^: CXR: Attestation: I personally reviewed and interpreted this imaging study as follows: Radiologist's impression: [address] [address]IDlp ReportSigned Patient: Valeri Atkins #: [id number]: 8Acct#:[id number]/Sex: 75 / FADM Date: 02/08/21Loc: ERRoom/Bed:Attending Dr: Ordering Provider/Ordering MD: Isidra Dias MD, [facility] [place] Date of Service: 02/08/21 Procedure(s): XR chest 1V portable [id number] Accession Number(s): [id number] Report Number: [id number] WS: [id number] Portable AP upright chest, 02/08/2021 Clinical Data: CP Comparison: Portable chest, 01/09/2020. Findings: No nodules, masses or effusions are seen. The heart is normal. The pulmonary vascularity is not increased. No pneumonia or pneumothorax is seen. The aortic arch and descending aorta shows mild tortuosity. There is a generator overlying the left axilla with wires leading superiorly. Monitor leads are on the chest wall. There are clips in the right upper quadrant from a cholecystectomy. XR/XR chest 1V portable [id number] Impression: Atherosclerosis. Dictated By:Machelle Telles MDSigned By:Machelle Telles MDSigned Date/Time:02/08/21 1513DD/ 1511 EKG Data^: EKG 1: Attestation: I personally reviewed and interpreted this EKG as follows: EKG interpretation date: 02/08/21 EKG interpretation time: 14:50 Prior EKG tracings: not available for review Interpretation: Sinus rhythm. Heart rate [address] changes. EKG 2: Attestation: I personally reviewed and interpreted this EKG as follows: EKG interpretation date: 02/08/21 EKG interpretation time: 17:07 Prior EKG tracings: available for review Interpretation: Sinus rhythm. Heart rate [address] changes. No significant change from earlier today. Discharge Plan Discharge Patient Disposition: Home Clinical Impression: Chest pain Qualifiers: Chest pain type: unspecified Qualified Code(s): R07.9 - Chest pain, unspecified Condition: Stable Prescriptions: Continued gabapentin 600 mg tablet 600 mg PO TID RF: 0 tizanidine 4 mg tablet 4 mg PO DAILY PRN (Reason: muscle spasms) RF: 0 carbidopa-levodopa 50-200 mg tablet extended release 1 tab PO QID RF: 0 ropinirole 2 mg tablet 2 mg PO TID RF: 0 oxybutynin chloride 15 mg tablet extended release 24 hr 15 mg PO DAILY RF: 0 hydrocodone-acetaminophen 10-325 mg tablet 0.5 - 1 tab PO BID PRN (Reason: Pain) RF: 0 pantoprazole 40 mg tablet,delayed release (DR/EC) 40 mg PO BID RF: 0 amantadine HCl 100 mg capsule 100 mg PO DAILY RF: 0 potassium 99 mg Tablet 99 mg PO DAILY RF: 0 simvastatin 20 mg tablet 20 mg PO DAILY RF: 0 tramadol 50 mg tablet 50 mg PO Q4H PRN (Reason: Pain) RF: 0 lorazepam 2 mg tablet 4 mg PO BEDTIME RF: 0 Discharge Orders: Discharge ED (Routine); Ordered 02/08/21 Ordered By: Isidra Dias Referrals: Khan,Rochelle, [employer] [Primary Care Provider] - 1-3 days Discharge Diet: Usual diet Discharge Activity: Increase activity as tolerated Patient Instructions: Chest Pain (ED) Activity Restrictions/Additional Instructions: Return for any new or worsening symptoms. Follow-up with your primary care provider within 3 days. Continue home medications. Coding Level of Care Code ED Ocular Care Aide for Diana Fwstanley Exam Comprehensive
[2021-02-08] MEDS: nitroglycerin 1 gm/inch oint Pkt 0.5 INCH TOPICAL (15:30)
[2021-02-08 15:38] LABS: Basophils # 0.1 10^3/uL (0.0-0.1); Basophils % 1.8 %; Eosinophils # 0.4 10^3/uL (0.0-0.8); Eosinophils % 6.1 %; Hematocrit 37.4 % (37.0-47.0); Hemoglobin 11.7 g/dL (11.5-15.3); Lymphocytes # 1.7 10^3/uL (0.8-4.8); Lymphocytes % 25.7 %; Mean Corpuscular HGB Conc 31.3 g/dL (30.0-36.0); Mean Corpuscular Hemoglobin 29.8 pg (28.0-34.0); Mean Corpuscular Volume 95.4 fL (81-99); Mean Platelet Volume 11.1 fL (7.4-10.4); Monocytes # 0.5 10^3/uL (0.2-0.9); Monocytes % 6.9 %; Neutrophils # 4.01 10^3/uL (1.8-7.7); Neutrophils % 59.2 %; Nucleated Red Blood Cells % 0 %; Platelet Count 233 10^3/cmm (130-400); Red Blood Count 3.92 10^6/uL (4.1-5.3); Red Cell Distribution Width 13.1 % (12.1-15.1); White Blood Count 6.8 10^3/uL (4.0-10.0)
[2021-02-08 16:03] LABS: Troponin(5th) Baseline 13 ng/L (0-10)
[2021-02-08 16:12] LABS: Alanine Aminotransferase < 5 U/L (0-33); Alkaline Phosphatase 104 IU/L (35-105); Anion Gap 12.4 (5-19); Aspartate Amino Transferase 15 U/L (0-32); Blood Urea Nitrogen 21 mg/dL (8-23); Calcium 8.8 mg/dL (8.5-10.5); Carbon Dioxide 29 mmol/L (22-29); Chloride 104 mmol/L (98-107); Globulin 2.2 g/dL (1.3-4.6); Glucose 94 mg/dL (65-115); Lipase 40 U/L (13-60); NT Pro B Type Natriuretic Pept 233 pg/mL (0-125); Osmolality Calculated 295 mOsm/kg (285-295); Potassium 4.4 mmol/L (3.5-5.1); Sodium 141 mmol/L (136-145); Total Bilirubin 0.2 mg/dL (0.15-1.2); Total Protein 6.2 g/dL (6.6-8.7)
--- NOTE | 2021-02-08 16:56 | ECG_ITS ---
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: : 1945 Requested By: Isidra Dias I Order Number: [id number] Reading MD: WILL GONZALEZ Measurements Intervals Placida Rate: 72 P: 67 IA: 197 QRS: 45 QRSD: 116 T: 74 QT: 419 QTc: 459 Interpretive Statements SINUS RHYTHM MODERATE INTRAVENTRICULAR CONDUCTION DELAY [105+ ms QRS DURATION, 80+ ms Q/S IN V1/V2, NO Q AND 60+ ms R IN I/aVL/V5/V6] Compared to ECG 01/27/2021 16:03:55 Intraventricular conduction delay now present First degree AV block no longer present Myocardial infarct finding no longer present Electronically Signed On 02-08-2021 21:24:06 CDT by WILL GONZALEZ [email or web address] [facility] centerASI System [id number]
[2021-02-08 17:51] VITALS: BP 120/58; PULSE 69; RESP 12; O2SAT 97
[2021-02-08 19:10] VITALS: BP 120/58; PULSE 69; RESP 12; O2SAT 97
== END 2021-02-08 19:10 | disposition home or self-care (01) ==
PROVIDERS: Emergency Provider Family Medicine; PCP Nurse Practitioner Family
DX: R07.9 Chest pain, unspecified (principal); I25.10 Atherosclerotic heart disease of native coronary artery without angina pectoris; I25.2 Old myocardial infarction; G20 Parkinson's disease; Z86.73 Personal history of transient ischemic attack (TIA), and cerebral infarction without residual deficits
CPT/HCPCS: 71045; 80053; 83690; 83880; 84484; 85025; 93005; 99284

== ENCOUNTER 2021-04-18 11:53 | Outpatient (CLI) | payer MEDICARE, OTHER, SELFPAY ==
[2021-04-18 13:13] LABS: Estmated Average Glucose 108; Hemoglobin A1C 5.4 % (4.0-6.0)
[2021-04-18 13:30] LABS: 25 Hydroxy Vitamin D 16 ng/mL (30-100); Vitamin B12 626 pg/mL (232-1245)
[2021-04-19 13:54] LABS: Anti-Double Strand DNA AB <1 IU/mL; Jo-1 Antibody <1.0 NEG AI (<1.0 NEG); SM/RNP Antibodies <1.0 NEG AI (<1.0 NEG); SS-B/LA IGG <1.0 NEG AI (<1.0 NEG); Scleroderma Ab(Scl-70) Ab <1.0 NEG AI (<1.0 NEG); Ss-A/Ro Igg <1.0 NEG AI (<1.0 NEG)
[2021-04-20 02:43] LABS: PROTEIN, TOTAL 6.1 g/dL (6.1-8.1)
[2021-04-20 08:12] LABS: ALBUMIN 3.8 g/dL (3.8-4.8); ALPHA 1 GLOBULIN 0.3 g/dL (0.2-0.3); ALPHA 2 GLOBULIN 0.8 g/dL (0.5-0.9); BETA 1 GLOBULIN 0.4 g/dL (0.4-0.6); BETA 2 GLOBULIN 0.3 g/dL (0.2-0.5); GAMMA GLOBULIN 0.6 g/dL (0.8-1.7)
[2021-04-23 09:58] LABS: Alpha-Tocopherol 19.8 mg/L; Beta-Gamma-Tocopherol <1.0 mg/L (<4.4)
[2021-04-24 08:46] LABS: Copper Level 134 mcg/dL (70-175)
== END 2021-04-18 11:54 | disposition home or self-care (01) ==
LOC: LAB 11:58
PROVIDERS: PCP Nurse Practitioner Family; Visit Provider Nurse Practitioner Family
DX: R73.9 Hyperglycemia, unspecified (principal); G60.8 Other hereditary and idiopathic neuropathies; E55.9 Vitamin D deficiency, unspecified; E53.8 Deficiency of other specified B group vitamins
CPT/HCPCS: 36415; 82306; 82525; 82607; 83036; 84155; 84165; 84446; 86225; 86235

== ENCOUNTER 2021-07-05 12:48 | Emergency (ER) | payer MEDICARE, OTHER, SELFPAY ==
[2021-07-05 13:07] VITALS: BP 116/75; PULSE 78; RESP 16; TEMP 36.7; O2SAT 95; BMI 16.4
--- NOTE | 2021-07-05 13:14 | XR_ITS ---
WS: [id number] Portable AP upright chest, 07/05/2021 Clinical Data: COUGH Comparison: Portable chest, 02/08/2021. Findings: No nodules, masses or effusions are seen. The heart is normal. The pulmonary vascularity is not increased. No pneumonia or pneumothorax is seen. The aortic arch and descending thoracic aorta s how mild tortuosity. There is a generator overlying the left axilla with the wires leading superiorly . The patient's had a posterior lumbar fusion. XR/XR chest 1V portable [id number] Impression: Atherosclerosis.
--- NOTE | 2021-07-05 13:18 | PC.NURSE ---
NOTIFIED DR. ARGUELLO THAT PT WAS UNSURE OF DATE HE VERBALIZED UNDERSTANDING NO FURTHER ORDERS.
--- NOTE | 2021-07-05 14:33 | ED_ITS ---
HPI - COVID General: Chief Complaint: COVID symptoms Stated Complaint: COVID SYMPTOMS Time Seen by Provider: 07/05/21 14:07 Triage information: Has fever, cough or shortness of breath . Exposure to COVID + person last 14 days History of Present Illness: HPI Narrative: Pt son positive for covid-she is now symptomatic x 2 days complaint: known COVID positive and has COVID symptoms Prior covid testing: no COVID 19 common symptoms: positive chills, cough and body aches COVID 19 other sytmptoms: negative requiring oxygen COVID Results: No Data to Display Review of Systems General: Reports: 10 or more systems reviewed and unremarkable except in HPI and below Const: Reports: chills and body aches PFS ED PFSH: Medical History Adult failure to thrive Ataxia CVA (cerebral vascular accident) Dysphagia Parkinson's disease Parkinsons disease Progressive neurologic decline Surgical History H/O lumbosacral spine surgery H/O: hysterectomy History of tonsillectomy and adenoidectomy S/P appendectomy S/P deep brain stimulator placement Social History Smoking and tobacco status: never smoked Physical Exam Const: COMMON NORMALS: no acute distress, patient oriented x3, no limitations and alert GENERAL APPEARANCE: cooperative and comfortable ORIENTATION/CONSCIOUSNESS: Yes awake, Yes oriented to person, Yes oriented to place and Yes oriented to time HENMT: COMMON NORMALS: normocephalic, atraumatic, external ears normal, EAC's normal, TM's normal bilaterally and Normal external nose present HEAD & SCALP: normal to inspection, normocephalic and atraumatic FACE & SINUS: normal facial exam, sinuses nontender and face symmetric NOSE: Normal external nose present, Normal nares present and No nasal discharge present EXTERNAL EAR: Yes external ears normal EXTERNAL AUDITORY CANAL: EAC's normal TYMPANIC MEMBRANE: TM's normal bilaterally MOUTH: Normal oral and palatal mucosa present, lip normal and tongue normal THROAT: posterior oropharynx normal, tonsils normal and uvula midline Eye: COMMON NORMALS: Equal, round and reactive pupils present, EOMs intact bilaterally and conjunctivae normal GENERAL EYE: appearance normal, both eyes and all related structures and normal light reflex EYELID: eyelids normal CONJUNCTIVA: Yes conjunctivae normal PUPIL: Yes Equal, round and reactive pupils present EOM: Yes EOM abnormal DIRECT OPHTHALMOSCOPY: Yes normal light reflex Neck/C-Spine: COMMON NORMALS: full ROM, no lymphadenopathy, supple, no meningeal signs, no JVD and Thyroid normal GENERAL: Yes normal visual inspection THYROID: Thyroid normal CERVICAL SPINE: Yes cervical ROM normal and Yes normal cervical lordosis Lymph: LYMPHATIC: no lymphadenopathy noted Chest: COMMONS NORMALS: normal inspection of the chest and normal palpation of entire chest wall Resp: COMMON NORMALS: normal respiratory effort, No retractions and clear to auscultation bilaterally AUSCULTATION: clear to auscultation bilaterally Cardio: COMMON NORMALS: no JVD, regular rate, regular rhythm, S1 normal heart sound present, S2 normal heart sound present, No gallops present (Cardio), No clicks present (Cardio), No murmurs present (Cardio), No rub (Cardio) and Peripheral pulses 2+ throughout RATE: regular rate RHYTHM: regular rhythm HEART SOUNDS: S1 normal heart sound present and S2 normal heart sound present PERIPHERAL PULSES: Peripheral pulses 2+ throughout GI: COMMON NORMALS: Normal to inspection, nondistended, normoactive bowel sounds present, Soft to palpation, non-tender and no masses PALPATION: Yes Soft to palpation : COMMON NORMALS: Yes no CVA tenderness and Yes normal external appearance BLADDER/KIDNEY EXAM: Yes no CVA tenderness Back/Pelvis: COMMON NORMALS: no CVA tenderness, thoracic and lumbar spine normal to inspection, no thoracic nor lumbar tenderness and thoraco-lumbar ROM normal Extremity: COMMON NORMALS: normal to inspection, full ROM, capillary refill normal, no joint enlargement, no clubbing, cyanosis or edema, no calf tenderness and no pedal edema GENERAL: Yes normal exam except as noted Neuro: COMMON NORMALS: patient oriented x3, moves all extremities, no focal motor deficits, no sensory deficits noted and gait normal SENSORIUM/ORIENTATION: Yes alert, Yes oriented to person, Yes oriented to place and Yes oriented to time MENINGEAL SIGNS: Yes no meningeal signs Psych: COMMON NORMALS: mental status grossly normal, Normal thought process present, cooperative, normal affect, speech normal and activity/motor behavior normal SPEECH: Yes normal speech THOUGHT PROCESS: Normal thought process present Skin: COMMON NORMALS: no rashes or lesions noted, no wounds and turgor normal GENERAL SKIN EXAM: no rashes or lesions noted and turgor normal Course ED course: Pt presents to er with complaints of covid exposure (son) whom she lives with. She began chilling and general unwell feeling two days ago. Sats are 97% on RA upon assessment. Her cxr is clear. We are going to get her PCR radid and DC. Will call for follow up antibody infusion if pt is positive. I also gave her instructions to supplements she can add to her regimen to help with recovery. Pt is in agreeance and wants to go home. Will return if her sats are less than 94%. Vital Signs: Vital signs: Vital Signs Temperature 98.1 F 07/05/21 13:07 Pulse Rate 78 07/05/21 13:07 Respiratory Rate 16 07/05/21 13:07 Blood Pressure 116/75 07/05/21 13:07 Pulse Oximetry 95 07/05/21 13:07 MDM - COVID Imaging Data: Xray Ortho: Radiologist's impression: [address] [address] XRay Report Signed Patient: Maria Atkins Unit #: [id number] : 1945 Age/Sex: 75 / F ADM Date: 07/05/21 Loc: ER Room/Bed: Attending Dr: Ordering Provider/Ordering MD: Salty Gomez DO Date of Service: 07/05/21 Procedure(s): XR chest 1V portable [id number] Accession Number(s): [id number] Report Number: [id number] WS: [id number] Portable AP upright chest, 07/05/2021 Clinical Data: COUGH Comparison: Portable chest, 02/08/2021. Findings: No nodules, masses or effusions are seen. The heart is normal. The pulmonary vascularity is not increased. No pneumonia or pneumothorax is seen. The aortic arch and descending thoracic aorta show mild tortuosity. There is a generator overlying the left axilla with the wires leading superiorly. The patient's had a posterior lumbar fusion. XR/XR chest 1V portable [id number] Impression: Atherosclerosis. Dictated By: Machelle Telles MD Signed By: Machelle Telles MD Signed Date/Time: 07/05/21 1344 DD/ 1342 COVID Results: No Data to Display Discharge Plan Discharge Patient Disposition: Home Clinical Impression: Exposure to COVID-19 virus Condition: Stable Prescriptions: No Action gabapentin 600 mg tablet 600 mg PO TID RF: 0 tizanidine 4 mg tablet 4 mg PO DAILY PRN (Reason: muscle spasms) RF: 0 carbidopa-levodopa 50-200 mg tablet extended release 1 tab PO QID RF: 0 ropinirole 2 mg tablet 2 mg PO TID RF: 0 oxybutynin chloride 15 mg tablet extended release 24 hr 15 mg PO DAILY RF: 0 hydrocodone-acetaminophen 10-325 mg tablet 0.5 - 1 tab PO BID PRN (Reason: Pain) RF: 0 pantoprazole 40 mg tablet,delayed release (DR/EC) 40 mg PO BID RF: 0 amantadine HCl 100 mg capsule 100 mg PO DAILY RF: 0 potassium 99 mg Tablet 99 mg PO DAILY RF: 0 simvastatin 20 mg tablet 20 mg PO DAILY RF: 0 tramadol 50 mg tablet 50 mg PO Q4H PRN (Reason: Pain) RF: 0 lorazepam 2 mg tablet 4 mg PO BEDTIME RF: 0 Discharge Orders: Discharge ED (Routine); Ordered 07/05/21 Ordered By: Billie Kim Referrals: Rochelle Khan APN [Primary Care Provider] - Discharge Diet: Usual diet Discharge Activity: Increase activity as tolerated Patient Instructions: Opioid Safety Activity Restrictions/Additional Instructions: Please return for any worsening in symptoms. Your test is pending and once recieved-if positive you will be set up for Monoclonal Antibodies if you so wish. It is important to go to [facility] or [facility] to obtain a pulse ox. If your sats decrease to less than 94% you should return to the ER. It has been studied that adding these supplements may lessen the severity of your illness: Vit D3 Vit C Zinc Quercetin Magnesium Selenium [place] Tea Avoid dairy products as they thicken secretions. Drink lots of warm tea and water as well as keeping up adequate protein such as chicken broth. Coding Level of Care Code ED Industrial Waste Treatment Technician for Diana Rosales
[2021-07-05 14:47] VITALS: BP 116/75; PULSE 78; RESP 16; TEMP 36.7; O2SAT 95
--- NOTE | 2021-07-05 15:34 | ED_ITS ---
HPI - COVID General: Chief Complaint: COVID symptoms Stated Complaint: COVID SYMPTOMS Time Seen by Provider: 07/05/21 14:07 Triage information: Has fever, cough or shortness of breath . Exposure to COVID + person last 14 days History of Present Illness: HPI Narrative: pt was exposed to son who is positive for covid COVID 19 common symptoms: positive fever(s) and body aches COVID Results: SARS-CoV-2 (PCR) Pending 07/05/21 14:32 07/05/21 Coronavirus Type 229E (PCR) Pending 07/05/21 14:32 07/05/21 Review of Systems General: Reports: 10 or more systems reviewed and unremarkable except in HPI and below Const: Reports: fever(s) and body aches PFSH ED PFSH: Medical History Adult failure to thrive Ataxia CVA (cerebral vascular accident) Dysphagia Parkinson's disease Parkinsons disease Progressive neurologic decline Surgical History H/O lumbosacral spine surgery H/O: hysterectomy History of tonsillectomy and adenoidectomy S/P appendectomy S/P deep brain stimulator placement Social History Smoking and tobacco status: never smoked Physical Exam Const: COMMON NORMALS: no acute distress, patient oriented x3, no limitations and alert GENERAL APPEARANCE: cooperative and comfortable ORIENTATION/CONSCIOUSNESS: Yes awake, Yes oriented to person, Yes oriented to place and Yes oriented to time HENMT: COMMON NORMALS: normocephalic, atraumatic, external ears normal, EAC's normal, TM's normal bilaterally and Normal external nose present HEAD & SCALP: normal to inspection, normocephalic and atraumatic FACE & SINUS: normal facial exam, sinuses nontender and face symmetric NOSE: Normal external nose present, Normal nares present and No nasal discharge present EXTERNAL EAR: Yes external ears normal EXTERNAL AUDITORY CANAL: EAC's normal TYMPANIC MEMBRANE: TM's normal bilaterally MOUTH: Normal oral and palatal mucosa present, lip normal and tongue normal THROAT: posterior oropharynx normal, tonsils normal and uvula midline Eye: COMMON NORMALS: Equal, round and reactive pupils present, EOMs intact bilaterally and conjunctivae normal GENERAL EYE: appearance normal, both eyes and all related structures and normal light reflex EYELID: eyelids normal CONJUNCTIVA: Yes conjunctivae normal PUPIL: Yes Equal, round and reactive pupils present EOM: Yes EOM abnormal DIRECT OPHTHALMOSCOPY: Yes normal light reflex Neck/C-Spine: COMMON NORMALS: full ROM, no lymphadenopathy, supple, no meningeal signs, no JVD and Thyroid normal GENERAL: Yes normal visual inspection THYROID: Thyroid normal CERVICAL SPINE: Yes cervical ROM normal and Yes normal cervical lordosis Lymph: LYMPHATIC: no lymphadenopathy noted Chest: COMMONS NORMALS: normal inspection of the chest and normal palpation of entire chest wall Resp: COMMON NORMALS: normal respiratory effort, No retractions and clear to auscultation bilaterally AUSCULTATION: clear to auscultation bilaterally Cardio: COMMON NORMALS: no JVD, regular rate, regular rhythm, S1 normal heart sound present, S2 normal heart sound present, No gallops present (Cardio), No clicks present (Cardio), No murmurs present (Cardio), No rub (Cardio) and Peripheral pulses 2+ throughout RATE: regular rate RHYTHM: regular rhythm HEART SOUNDS: S1 normal heart sound present and S2 normal heart sound present PERIPHERAL PULSES: Peripheral pulses 2+ throughout GI: COMMON NORMALS: Normal to inspection, nondistended, normoactive bowel sounds present, Soft to palpation, non-tender and no masses PALPATION: Yes Soft to palpation : COMMON NORMALS: Yes no CVA tenderness and Yes normal external appearance BLADDER/KIDNEY EXAM: Yes no CVA tenderness Back/Pelvis: COMMON NORMALS: no CVA tenderness, thoracic and lumbar spine normal to inspection, no thoracic nor lumbar tenderness and thoraco-lumbar ROM normal Extremity: COMMON NORMALS: normal to inspection, full ROM, capillary refill normal, no joint enlargement, no clubbing, cyanosis or edema, no calf tenderness and no pedal edema GENERAL: Yes normal exam except as noted Neuro: COMMON NORMALS: patient oriented x3, moves all extremities, no focal motor deficits, no sensory deficits noted and gait normal SENSO RIUM/ORIENTATION: Yes alert, Yes oriented to person, Yes oriented to place and Yes oriented to time MENINGEAL SIGNS: Yes no meningeal signs Psych: COMMON NORMALS: mental status grossly normal, Normal thought process present, cooperative, normal affect, speech normal and activity/motor behavior normal SPEECH: Yes normal speech THOUGHT PROCESS: Normal thought process present Skin: COMMON NORMALS: no rashes or lesions noted, no wounds and turgor normal GENERAL SKIN EXAM: no rashes or lesions noted and turgor normal Course ED course: Pt was exposed to covid per son who she lives with. COVID rapid is positive. She will be discharged and set up for outpatient monoclonal antibodies. She does not need or meet admission requirements and wishes to proceed home. Vital Signs: Vital signs: Vital Signs Temperature 98.1 F 07/05/21 14:47 Pulse Rate 78 07/05/21 14:47 Respiratory Rate 16 07/05/21 14:47 Blood Pressure 116/75 07/05/21 14:47 Pulse Oximetry 95 07/05/21 14:47 MDM - COVID COVID Results: SARS-CoV-2 (PCR) Pending 07/05/21 14:32 07/05/21 Coronavirus Type 229E (PCR) Pending 07/05/21 14:32 07/05/21 Discharge Plan Discharge Patient Disposition: Home Clinical Impression: Exposure to COVID-19 virus Condition: Stable Prescriptions: No Action gabapentin 600 mg tablet 600 mg PO TID RF: 0 tizanidine 4 mg tablet 4 mg PO DAILY PRN (Reason: muscle spasms) RF: 0 carbidopa-levodopa 50-200 mg tablet extended release 1 tab PO QID RF: 0 ropinirole 2 mg tablet 2 mg PO TID RF: 0 oxybutynin chloride 15 mg tablet extended release 24 hr 15 mg PO DAILY RF: 0 hydrocodone-acetaminophen 10-325 mg tablet 0.5 - 1 tab PO BID PRN (Reason: Pain) RF: 0 pantoprazole 40 mg tablet,delayed release (DR/EC) 40 mg PO BID RF: 0 amantadine HCl 100 mg capsule 100 mg PO DAILY RF: 0 potassium 99 mg Tablet 99 mg PO DAILY RF: 0 simvastatin 20 mg tablet 20 mg PO DAILY RF: 0 tramadol 50 mg tablet 50 mg PO Q4H PRN (Reason: Pain) RF: 0 lorazepam 2 mg tablet 4 mg PO BEDTIME RF: 0 Discharge Orders: Discharge ED (Routine); Ordered 07/05/21 Ordered By: Billie Kim Referrals: Khan,LESLIE Byrd [Primary Care Provider] - Discharge Diet: Usual diet Discharge Activity: Increase activity as tolerated Patient Instructions: Opioid Safety Activity Restrictions/Additional Instructions: Please return for any worsening in symptoms. Your test is pending and once recieved-if positive you will be set up for Monoclonal Antibodies if you so wish. It is important [facility]. If your sats decrease to less than 94% you should return to the ER. It has been studied that adding these supplements may lessen the severity of your illness: Vit D3 Vit C Zinc Quercetin Magnesium Selenium [place] Tea Avoid dairy products as they thicken secretions. Drink lots of warm tea and water as well as keeping up adequate protein such as chicken broth. Coding Level of Care Code ED Manufacturing Sr Engineer for Diana Rosales
[2021-07-05 15:37] LABS: SARS Covid-2 Antigen Positive (Negative)
== END 2021-07-05 14:51 | disposition home or self-care (01) ==
LOC: ER 11-15 10:43
PROVIDERS: Emergency Provider Nurse Practitioner Family; PCP Nurse Practitioner Family
DX: U07.1 COVID-19 (principal)
CPT/HCPCS: 71045; 87426; 99282

== ENCOUNTER 2021-08-21 10:23 | Observation (INO) | payer MEDICARE, OTHER, SELFPAY ==
--- NOTE | 2021-08-21 | USCV_ITS ---
Transthoracic Echo Maria Atkins Age: 75 Gender: F : 1945 Exam Date: 08/21/2021 19:42 Ordering Phys: Johnathan Martinez MD Technologist: HILARY Exam Location: [facility] [place] Indication: Syncope BP: / HR: 72 Rhythm: Sinus Technical Quality: Adequate MEASUREMENTS (Male / Female) Normal Values 2D ECHO LV Diastolic Diameter PLAX 3.6 cm 4.2 - 5.9 / 3.9 - 5.3 cm LV Systolic Diameter PLAX 2.5 cm IVS Diastolic Thickness 0.9 cm 0.6 - 1.0 / 0.6 - 0.9 cm IVS Systolic Thickness 1.1 cm LVPW Diastolic Thickness 1.2 cm 0.6 - 1.0 / 0.6 - 0.9 cm LVPW Systolic Thickness 1.6 cm LVOT Diameter 1.5 cm LV Ejection Fraction 2D Teich 60.1 % LV Ejection Fraction MOD 2C 72.7 % LV Ejection Fraction 2C AL 71.6 % LA Diameter 4.1 cm LA Width 3.7 cm LA Height 4.5 cm RA Width 2.8 cm RA Height 3.4 cm Aorta at Sinotubular Diameter 1.7 cm M-MODE Aortic Annulus Diameter 1.8 cm LA Ao Ratio MM 2.2 MV E Point Septal Separation 1.3 cm DOPPLER AV Peak Velocity 143.0 cm/s LVOT Peak Velocity 79.0 cm/s AV Area Cont Eq vti 1.5 cm squared AV Area Cont Eq pk 1.0 cm squared MV Peak Velocity 106.0 cm/s MV Area PHT 4.1 cm squared Mitral E to A Ratio 0.8 MV E' Velocity 49.0 cm/s Mitral E to MV E' Ratio 8.8 Mitral E to LV E' Lateral Ratio 7.7 Mitral E to LV E' Septal Ratio 10.3 TR Peak Velocity 167.8 cm/s TR Peak Gradient 11.3 mmHg TR Mean Velocity 140.5 cm/s TR Mean Gradient 10.1 mmHg TR Velocity Time Integral 59.4 cm TV Peak E Velocity 57.0 cm/s Right Atrial Pressure 3.0 mmHg Pulmonary Artery Systolic Pressu 14.3 mmHg PV Peak Velocity 116.0 cm/s RV Acceleration Time 0.2 s RV Ejection Time 0.4 s RV AcT/ET 0.5 FINDINGS Left Ventricle Normal left ventricular size and systolic function, EF 67 %. Abnormal septal motion consistent with conduction abnormality. Grade I/IV diastolic dysfunction (abnormal relaxation filling pattern), normal to mildly elevated filling pressures. Right Ventricle The right ventricle is normal in size and function. Right Atrium The right atrium is normal in size. Left Atrium Mildly increased left atrial size. Mitral Valve Thickened mitral valve. Mild mitral valve regurgitation. Aortic Valve No gross abnormalities noted Tricuspid Valve No gross abnormalities noted Pulmonic Valve Pulmonic valve not well visualized. Pericardium Normal pericardium without effusion. Aorta Normal ascending aorta dimension. CONCLUSIONS Normal left ventricular size and systolic function, EF 67 %. Abnormal septal motion consistent with conduction abnormality. Grade I/IV diastolic dysfunction (abnormal relaxation filling pattern), normal to mildly elevated filling pressures. Thickened mitral valve. Mild mitral valve regurgitation. There is no pericardial effusion. There are no intracardiac masses. Compared to the study from 07/30/2018, there may not be a significant change Dr Tommie Doyle MD FACC (Electronically Signed) Final Date: 22 August 2021 13:01 S
[2021-08-21 10:26] VITALS: BP 106/43; PULSE 53; RESP 14; TEMP 36.6; O2SAT 100; BMI 24.1
--- NOTE | 2021-08-21 10:36 | XR_ITS ---
WS: [id number] Exam: XR chest 1V portable [id number] Date/Time of Exam: 08/21/2021 10:39 AM Reason For Exam: syncope Comparison 07/05/2021. Small infiltrate noted in the left base. Remaining lung curtis are clear. No pneumothorax or pleural effusion. Normal cardiomediastinal silhouette. A neurostimulator pack is superimposed over the left c hest with the leads extending cephalad. Bony structures are intact. XR/XR chest 1V portable [id number] IMPRESSION: 1. Small infiltrate in the left base near the costophrenic angle. This may repr esent developing pneumonia.
--- NOTE | 2021-08-21 10:36 | CT_ITS ---
WS: [id number] CT HEAD NONCONTRAST HISTORY: trauma, syncope, fall TECHNIQUE: Contiguous axial imaging performed through the brain in 2.5 mm imaging. Bone and soft tiss ue windows. Sagittal and coronal reformats reviewed. All CT scans at [facility] use at least one of these dose optimization techniques: automated exposure control; mA and/or kV adjustment per pa tient size (includes targeted exams where dose is matched to clinical indication); or iterative recon struction. DLP: 937.98 mGy.cm COMPARISON: 01/27/2021 Deep brain stimulator electrodes are again noted coursing through the posterior frontal lobes to term inate in the thalami. No change in position or hemorrhage along the course of the stimulator electrod es. There is very mild cerebral atrophy and mild chronic microvascular ischemic disease. There is signifi cant artifact from the stimulator electrodes through the brain. No midline shift. No interval change. Ventricles: Normal size with no hydrocephalus. Paranasal sinuses: As visualized are clear. Mastoid air cells: Atrophic and small mastoid air cells with fluid. Calvarium and scalp: Electrodes enter through the frontal bones bilaterally. No interval change. CT/CT head wo con* [id number] IMPRESSION: 1. No acute intracranial hemorrhage or edema. 2. Bilateral thalamic deep stimulator electrodes are unchanged. 3. No fracture.
--- NOTE | 2021-08-21 10:36 | CT_ITS ---
WS: [id number] CT CERVICAL SPINE HISTORY: syncope, fall TECHNIQUE: Contiguous 2.5 mm axial imaging performed through the entire cervical spine. Sagittal and coronal reformats also performed. All CT scans at [facility] use at least one of these dose o ptimization techniques: automated exposure control; mA and/or kV adjustment per patient size (include s targeted exams where dose is matched to clinical indication); or iterative reconstruction. DLP: 299.13 mGy.cm COMPARISON: 09/19/2019 and 01/20/2019 Marked scoliosis and increased cervical lordosis throughout the cervical spine. Severe narrowing of t he predental space. Craniocervical junction is normally aligned although slightly asymmetric and grea ter on the RIGHT than the LEFT. No acute fractures are identified. Disc spaces are narrowed. C4 anter olisthesis by 3 mm. Facet joints are normally aligned. No acute fractures are identified. Electrodes and lead wires are noted extending over the LEFT lateral neck. Lung apices are clear. Multilevel areas of significant facet joint arthritis and bilateral neural foraminal stenosis. CT/CT cervical spin wo con* [id number] IMPRESSION: 1. Severe degenerative changes of scoliosis, disc space narrowing and facet ar thritis throughout the cervical spine. 2. No acute fracture. Very similar appearance to the cervical vertebrae as com pared to 09/17/2019.
--- NOTE | 2021-08-21 10:37 | ECG_ITS ---
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 Measurements Intervals Morris Rate: 89 P: 45 IA: 181 QRS: 24 QRSD: 118 T: 51 QT: 418 QTc: 511 Interpretive Statements SINUS RHYTHM MODERATE INTRAVENTRICULAR CONDUCTION DELAY [105+ ms QRS DURATION, 80+ ms Q/S IN V1/V2, NO Q AND 60+ ms R IN I/aVL/V5/V6] NONSPECIFIC T-WAVE ABNORMALITY Compared to ECG 02/08/2021 17:07:07 T-wave abnormality now present Electronically Signed On 08-21-2021 17:42:47 RADIOLOGY AIDE by Sandy Saeed M.D. [id number]
--- NOTE | 2021-08-21 10:37 | XR_ITS ---
WS: [id number] Exam: XR shoulder RT min 2V* [id number] Date/Time of Exam: 08/21/2021 10:39 AM Reason For Exam: fall, pain No acute fracture or dislocation noted. Prominent osteophyte projects from the inferior medial aspect of the humeral head. 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 Normal soft tissues. Minimal DJD at the AC joint. XR/XR shoulder RT min 2V* [id number] IMPRESSION: 1. No acute fracture or dislocation. 2. Degenerative changes as above. 3. 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
--- NOTE | 2021-08-21 10:38 | W.ED.SYNCOPE ---
Documented by User: TANIA Cali 08/21/21 14:12 HPI - Syncope General: Chief Complaint: Fall Stated Complaint: FALL/HEMATOMA Time Seen by Provider: 08/21/21 10:27 Source: patient and EMS Mode of arrival: EMS Limitations: no limitations History of Present Illness: Patient is a 75-year-old female with a history of Parkinson's disease, progressive neurologic decline, ataxia, failure to thrive here via EMS for an episode of syncope. Initial EMS report states they were called out for complaints of a fall however when they arrived the son told them that patient had stood up and became lightheaded and dizzy and passed out. Son states she did strike her head. LOC for a few seconds. Patient has been at her mental baseline since the fall. Son does state over the past several days she has been very weak, has had a decreased appetite, nausea, and has had some diarrhea. No fevers. Patient states her only pain currently is pain to her right shoulder that she states has been present over the past 3 weeks. EMS apparently placed patient on 2 L of oxygen due to sats in the 90s. She does not complain of shortness of breath, difficulty breathing, palpitations or chest pains. She was tapered off this and is currently satting at 94% on RA. MD complaint: loss of consciousness and collapsed Onset (ago): hour(s) Duration of episode: 5 -: second(s) Prodromal symptoms: none Witnessed: Yes - by Bystander (family/son) Context: standing up Associated symptoms: Reports nausea; Deny abdominal pain, chest pain, fever(s), headache(s), lightheadedness or vertigo Treatments prior to arrival: IV fluids Review of Systems Const: Denies: fever(s), chills, body aches, fatigue or malaise Eyes: Denies: change in vision or blurry vision Card: Reports: syncope; Denies: chest pain, palpitations, irregular heart rhythm, edema, swelling of feet/ankles, lightheadedness, dyspnea on exertion, orthopnea, leg pain with exertion or acrocyanosis Resp: Denies: dyspnea, productive cough, wheezing, pain on inspiration, hemoptysis or chest congestion GI: Reports: nausea and diarrhea; Denies: abdominal pain, vomiting or heartburn : Denies: flank pain, difficulty voiding, dysuria, urinary frequency or urinary urgency Musc: Reports: neck pain (chronic-at baseline), back pain (chronic-at baseline) and joint pain (R shoulder); Denies: joint swelling Skin/Breast: Denies: rash Neuro: Reports: difficulty walking (chronically); Denies: headache(s), numbness in extremities, weakness in extremities, sensory changes, vertigo, confusion, Slurred speech present, difficulty communicating thoughts or seizure-like activity PFSH ED PFSH: Medical History Adult failure to thrive Ataxia CVA (cerebral vascular accident) Dysphagia Parkinson's disease Parkinsons disease Progressive neurologic decline Surgical History H/O lumbosacral spine surgery H/O: hysterectomy History of tonsillectomy and adenoidectomy S/P appendectomy S/P deep brain stimulator placement Social History Smoking and tobacco status: never smoked Physical Exam Const: COMMON NORMALS: no acute distress, no limitations and alert GENERAL APPEARANCE: cooperative and other (frail appearing) ORIENTATION/CONSCIOUSNESS: Yes awake, Yes oriented to person and Yes oriented to place HENMT: COMMON NORMALS: normocephalic and Normal external nose present HEAD & SCALP: normal to inspection, normocephalic and other (possibly small L parietal hematoma vs normal bony anatomy?) FACE & SINUS: normal facial exam NOSE: Normal external nose present TEETH & GINGIVA: Yes edentulous Eye: GENERAL EYE: appearance normal, both eyes and all related structures Neck/C-Spine: COMMON NORMALS: full ROM CERVICAL SPINE: Yes cervical ROM normal, No pain with cervical ROM, No Cervical spine tenderness and No step off deformity Chest: COMMONS NORMALS: normal inspection of the chest and normal palpation of entire chest wall Resp: COMMON NORMALS: normal respiratory effort and clear to auscultation bilaterally AUSCULTATION: clear to auscultation bilaterally Cardio: COMMON NORMALS: regular rate and regular rhythm RATE: regular rate RHYTHM: regular rhythm GI: COMMON NORMALS: Normal to inspection, nondistended, normoactive bowel sounds present, Soft to palpation, non-tender, No hepatosplenomegaly present and no masses PALPATION: Yes Soft to palpation and Yes No hepatosplenomegaly present : COMMON NORMALS: Yes no CVA tenderness BLADDER/KIDNEY EXAM: Yes no CVA tenderness Back/Pelvis: COMMON NORMALS: no CVA tenderness OTHER: reports chronic back pains-at baseline; there is no point tenderness anywhere on T or L spine Extremity: COMMON NORMALS: normal to inspection, capillary refill normal, no joint enlargement, no clubbing, cyanosis or edema, no calf tenderness and no pedal edema GENERAL: Yes normal exam except as noted RIGHT UPPER EXTREMITY: Yes shoulder joint (TTP R shoulder; mildly limited ROM secondary to pain; no deformity) Right shoulder: Yes Right shoulder joint neurovascular exam (normal) Neuro: IVELISSE COMA SCALE: document GCS findings [place] coma scale eye opening: Spontaneous [place] coma scale verbal response: Orientated [place] coma scale motor response: Obey commands [place] coma scale total score: 15 COMMON NORMALS: CN's II-XII intact bilaterally, moves all extremities, no focal motor deficits and no sensory deficits noted SENSORIUM/ORIENTATION: Yes alert, Yes oriented to person and Yes oriented to place MOTOR EXAM: 5/5 motor strength present throughout OTHER: at mental baseline per family Skin: COMMON NORMALS: no rashes or lesions noted GENERAL SKIN EXAM: no rashes or lesions noted TRAUMA: no lacerations or abrasions Course Vital Signs: Vital signs: Vital Signs Temperature 97.7 F 08/23/21 00:05 Pulse Rate 69 08/23/21 00:05 Respiratory Rate 18 08/23/21 00:05 Blood Pressure 128/54 08/23/21 00:05 Pulse Oximetry 94 08/23/21 00:05 MDM - Syncope Medical Decision Making Patient is a 75-year-old female here for complaints of weakness, syncopal episode, nausea and diarrhea. Patient has had 5-6 episodes of diarrhea while here. She has received 2200 mLs of fluid and remains hypotensive at 90s/40s. Patient has acute renal injury with BUN/Cr 30/1.7. Stool samples and CT of her abdomen/pelvis are pending. UA is normal. Rapid COVID negative. At this point I think it would be in patient's best interest come into hospital. I have spoken to Dr. Mitchell who agrees. He will evaluate patient and we will speak to hospitalist for admission. Lab Data : 08/22/21 02:20 08/22/21 02:20 Radiology Impressions Cervical Spine CT 08/21/21 10:36 IMPRESSION: 1. Severe degenerative changes of scoliosis, disc space narrowing and facet arthritis throughout the cervical spine. 2. No acute fracture. Very similar appearance to the cervical vertebrae as compared to 09/17/2019. Chest X-Ray 08/21/21 10:36 IMPRESSION: 1. Small infiltrate in the left base near the costophrenic angle. This may represent developing pneumonia. Head CT 08/21/21 10:36 IMPRESSION: 1. No acute intracranial hemorrhage or edema. 2. Bilateral thalamic deep stimulator electrodes are unchanged. 3. No fracture. Shoulder X-Ray 08/21/21 10:37 IMPRESSION: 1. No acute fracture or dislocation. 2. Degenerative changes as above. 3. 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 Abdomen/Pelvis CT 08/21/21 12:54 IMPRESSION: 1. No acute abdominal or pelvic abnormalities are identified. 2. Status post cholecystectomy and hysterectomy. 3. Moderately dilated common bile duct. Common bile duct measures 15 mm. No etiology for the dilatation. May be related to aging and cholecystectomy. If further evaluation is necessary consider MRCP evaluation. 4. Moderate constipation and fecal retention. 5. Lack of IV and oral contrast limits evaluation of the abdominal structures. Chest CTA 08/22/21 09:41 IMPRESSION: 1. No pulmonary embolism. 2. Mixed subpleural density in the RIGHT lower lobe. A mixture of nodular consolidation and groundglass attenuation. Suspect area of pneumonia with pneumonitis. Small pulmonary infarct may appear similar. No associated embolism is identified. Recommend follow-up chest CT in 3 months to ensure resolution. 3. Moderate enlargement of the LEFT heart chambers. 4. New mild dilatation of the LEFT renal pelvis. May be due to an overly distended bladder. No ureteral calcification or obstruction was noted on the study from 08/21/2021. Laboratory Results WBC 3.3 10^3/uL (4.0-10.0) L 08/21/21 10:56 RBC 3.44 10^6/uL (4.1-5.3) L 08/21/21 10:56 Hgb 10.4 g/dL (11.5-15.3) L 08/21/21 10:56 Hct 32.9 % (37.0-47.0) L 08/21/21 10:56 MCV 95.6 fl (81-99) 08/21/21 10:56 MCH 30.2 pg (28.0-34.0) 08/21/21 10:56 MCHC 31.6 g/dL (30.0-36.0) 08/21/21 10:56 RDW 14.0 % (12.1-15.1) 08/21/21 10:56 Plt Count 194 10^3/cmm (130-400) 08/21/21 10:56 MPV 11.0 fL (7.4-10.4) H 08/21/21 10:56 Neut % (Auto) 92.7 % 08/21/21 10:56 Lymph % (Auto) 5.5 % 08/21/21 10:56 Hardin % (Auto) 0.9 % 08/21/21 10:56 Eos % (Auto) 0.3 % 08/21/21 10:56 Baso % (Auto) 0.3 % 08/21/21 10:56 Neut # (Auto) 3.06 10^3/uL (1.8-7.7) 08/21/21 10:56 Lymph # (Auto) 0.2 10^3/uL (0.8-4.8) L 08/21/21 10:56 Hardin # (Auto) 0.0 10^3/uL (0.2-0.9) L 08/21/21 10:56 Eos # (Auto) 0.0 10^3/uL (0.0-0.8) 08/21/21 10:56 Baso # (Auto) 0.0 10^3/uL (0.0-0.1) 08/21/21 10:56 Nucleated RBC % (auto) 0 % 08/21/21 10:56 Nucleated RBCs # 0.0 /100WBC 08/21/21 10:56 Sodium 144 mmol/L (136-145) 08/21/21 10:56 Potassium 4.4 mmol/L (3.5-5.1) 08/21/21 10:56 Chloride 108 mmol/L (98-107) H 08/21/21 10:56 Carbon Dioxide 25 mmol/L (22-29) 08/21/21 10:56 Anion Gap 15.4 (5-19) 08/21/21 10:56 BUN 30 mg/dL (8-23) H 08/21/21 10:56 Creatinine 1.7 mg/dL (0.5-0.9) H 08/21/21 10:56 GFR Calculation Not Reportable 08/21/21 10:56 Glucose 80 mg/dL (65-115) 08/21/21 10:56 Calculated Osmolality 303 mOsm/kg (285-295) H 08/21/21 10:56 Calcium 8.4 mg/dL (8.5-10.5) L 08/21/21 10:56 Total Bilirubin 0.4 mg/dL (0.15-1.2) 08/21/21 10:56 AST 149 U/L (0-32) H 08/21/21 10:56 ALT 17 U/L (0-33) 08/21/21 10:56 Alkaline Phosphatase 145 IU/L (35-105) H 08/21/21 10:56 Troponin T Baseline 16 ng/L (0-10) H 08/21/21 10:56 Troponin T 120 Minute 16.43 ng/L (0-10) H 08/21/21 13:12 Delta Troponin T 0.43 ABS# (0-10) 08/21/21 13:12 Total Protein 5.4 g/dL (6.6-8.7) L 08/21/21 10:56 Albumin 3.8 g/dL (3.5-5.2) 08/21/21 10:56 Globulin 1.6 g/dL (1.3-4.6) 08/21/21 10:56 Lipase 103 U/L (13-60) H 08/21/21 10:56 Urine Color Yellow (Yellow) 08/21/21 11:45 Urine Appearance Clear (CLEAR) 08/21/21 11:45 Urine pH 5 (5-7) 08/21/21 11:45 Ur Specific [place] 1.015 (1.005-1.030) 08/21/21 11:45 Urine Protein Neg (Negative) 08/21/21 11:45 Urine Glucose (UA) Norm (Normal) 08/21/21 11:45 Urine Ketones Negative (Negative) 08/21/21 11:45 Urine Blood Neg (Negative) 08/21/21 11:45 Urine Nitrate Negative (Negative) 08/21/21 11:45 Urine Bilirubin Neg (Negative) 08/21/21 11:45 Urine Urobilinogen Norm mg/dL (Negative) 08/21/21 11:45 Ur Leukocyte Esterase Negative (Negative) 08/21/21 11:45 SARS-CoV-2 Ag (Rapid) Negative (Negative) 08/21/21 10:58 Discharge Plan Discharge Patient Disposition: Placed in Observation Admit Provider: Johnathan Martinez Clinical Impression: Dehydration, Syncope, Hypotension, Diarrhea, Acute kidney injury Coding Level of Care Code ED Strip Feeder for Chg Fwd Exam Comprehensive Documented by User: Johnson Mitchell MD 08/23/21 01:28 HPI - Syncope General: Chief Complaint: Fall Stated Complaint: FALL/HEMATOMA Time Seen by Provider: 08/21/21 10:27 Review of Systems General: Reports: 10 or more systems reviewed and unremarkable except in HPI and below PFSH ED PFSH: Medical History Adult failure to thrive Ataxia CVA (cerebral vascular accident) Dysphagia Parkinson's disease Parkinsons disease Progressive neurologic decline Surgical History H/O lumbosacral spine surgery H/O: hysterectomy History of tonsillectomy and adenoidectomy S/P appendectomy S/P deep brain stimulator placement Social History Smoking and tobacco status: never smoked Physical Exam Neuro: IVELISSE COMA SCALE: document GCS findings [place] coma scale total score: 15 Course Vital Signs: Vital signs: Vital Signs Temperature 97.7 F 08/23/21 00:05 Pulse Rate 69 08/23/21 00:05 Respiratory Rate 18 08/23/21 00:05 Blood Pressure 128/54 08/23/21 00:05 Pulse Oximetry 94 08/23/21 00:05 MDM - Syncope Medical Decision Making Patient is a 75-year-old female here for complaints of weakness, syncopal episode, nausea and diarrhea. Patient has had 5-6 episodes of diarrhea while here. She has received 2200 mLs of fluid and remains hypotensive at 90s/40s. Patient has acute renal injury with BUN/Cr 30/1.7. Stool samples and CT of her abdomen/pelvis are pending. UA is normal. Rapid COVID negative. At this point I think it would be in patient's best interest come into hospital. I have spoken to Dr. Mitchell who agrees. He will evaluate patient and we will speak to hospitalist for admission. I discussed this case with TANIA Cali. I personally reevaluated the patient and reperformed juarez portions of E/M and agree as documented above. I discussed the case with hospitalist, patient to be admitted for further evaluation and management. Johnson Mitchell MD Emergency Medicine Lab Data : 08/22/21 02:20 08/22/21 02:20 Radiology Impressions Cervical Spine CT 08/21/21 10:36 IMPRESSION: 1. Severe degenerative changes of scoliosis, disc space narrowing and facet arthritis throughout the cervical spine. 2. No acute fracture. Very similar appearance to the cervical vertebrae as compared to 09/17/2019. Chest X-Ray 08/21/21 10:36 IMPRESSION: 1. Small infiltrate in the left base near the costophrenic angle. This may represent developing pneumonia. Head CT 08/21/21 10:36 IMPRESSION: 1. No acute intracranial hemorrhage or edema. 2. Bilateral thalamic deep stimulator electrodes are unchanged. 3. No fracture. Shoulder X-Ray 08/21/21 10:37 IMPRESSION: 1. No acute fracture or dislocation. 2. Degenerative changes as above. 3. 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 Abdomen/Pelvis CT 08/21/21 12:54 IMPRESSION: 1. No acute abdominal or pelvic abnormalities are identified. 2. Status post cholecystectomy and hysterectomy. 3. Moderately dilated common bile duct. Common bile duct measures 15 mm. No etiology for the dilatation. May be related to aging and cholecystectomy. If further evaluation is necessary consider MRCP evaluation. 4. Moderate constipation and fecal retention. 5. Lack of IV and oral contrast limits evaluation of the abdominal structures. Chest CTA 08/22/21 09:41
[2021-08-21 11:02] LABS: Basophils % 0.3 %; Eosinophils % 0.3 %; Hematocrit 32.9 % (37.0-47.0); Hemoglobin 10.4 g/dL (11.5-15.3); Lymphocytes # 0.2 10^3/uL (0.8-4.8); Lymphocytes % 5.5 %; Mean Corpuscular HGB Conc 31.6 g/dL (30.0-36.0); Mean Corpuscular Hemoglobin 30.2 pg (28.0-34.0); Mean Corpuscular Volume 95.6 fl (81-99); Monocytes % 0.9 %; Neutrophils # 3.06 10^3/uL (1.8-7.7); Neutrophils % 92.7 %; Nucleated Red Blood Cells % 0 %; Platelet Count 194 10^3/cmm (130-400); Red Blood Count 3.44 10^6/uL (4.1-5.3); White Blood Count 3.3 10^3/uL (4.0-10.0)
[2021-08-21 11:20] LABS: Alanine Aminotransferase 17 U/L (0-33); Albumin Level 3.8 g/dL (3.5-5.2); Alkaline Phosphatase 145 IU/L (35-105); Anion Gap 15.4 (5-19); Aspartate Amino Transferase 149 U/L (0-32); Blood Urea Nitrogen 30 mg/dL (8-23); Calcium 8.4 mg/dL (8.5-10.5); Carbon Dioxide 25 mmol/L (22-29); Chloride 108 mmol/L (98-107); Globulin 1.6 g/dL (1.3-4.6); Glucose 80 mg/dL (65-115); Osmolality Calculated 303 mOsm/kg (285-295); Potassium 4.4 mmol/L (3.5-5.1); Sodium 144 mmol/L (136-145); Total Bilirubin 0.4 mg/dL (0.15-1.2); Total Protein 5.4 g/dL (6.6-8.7)
[2021-08-21 11:28] LABS: Troponin(5th) Baseline 16 ng/L (0-10)
[2021-08-21] MEDS: lactated ringers 1,000 ML 999 ML IV (11:30)
[2021-08-21 11:45] LABS: SARS Covid-2 Antigen Negative (Negative)
[2021-08-21 11:55] LABS: Add Urine Microscopic? NO; Charge for UA Resulting for Rev
[2021-08-21 12:03] LABS: Bilirubin Urine Neg (Negative); Blood Urine Neg (Negative); Glucose Urine UA Norm (Normal); Ketones Urine Negative (Negative); Leukocyte Esterase Urine Negative (Negative); Nitrate Urine Negative (Negative); Protein Urine Neg (Negative); Specific Gravity, Urine 1.015 (1.005-1.030); Urine Appearance Clear (CLEAR); Urine Color Yellow (Yellow); Urobilinogen Urine Norm (Negative); pH Urine 5 (5-7)
[2021-08-21 12:23] VITALS: TEMP 36.7
--- NOTE | 2021-08-21 12:37 | ECG_ITS ---
[facility] Test Date: 2021-08-21 Pat Name: Maria Atkins Department: Room: Gender: Female Copy Coordinator: : 1945 Requested By: Christiane Lopez Order Number: [id number] Rex MD: Sandy Saeed M.D. Measurements Intervals [place] Rate: 76 P: 54 GA: 204 QRS: 45 QRSD: 120 T: 63 QT: 444 QTc: 502 Interpretive Statements SINUS RHYTHM MODERATE INTRAVENTRICULAR CONDUCTION DELAY [105+ ms QRS DURATION, 80+ ms Q/S IN V1/V2, NO Q AND 60+ ms R IN I/aVL/V5/V6] PROLONGED QT INTERVAL Compared to ECG 08/21/2021 11:08:38 Prolonged QT interval now present T-wave abnormality no longer present Electronically Signed On 08-21-2021 17:44:55 LOGISTICS INTERN by Sandy Saeed M.D. [id number]
[2021-08-21 12:45] VITALS: BP 96/42; RESP 17; TEMP 36.7; O2SAT 93
--- NOTE | 2021-08-21 12:54 | CT_ITS ---
WS: [id number] CT ABDOMEN AND PELVIS NONCONTRAST HISTORY: diarrhea TECHNIQUE: Imaging performed through the abdomen and pelvis. Coronal and sagittal reformats are submi tted. All CT scans at [facility] use at least one of these dose optimization techniques: auto mated exposure control; mA and/or kV adjustment per patient size (includes targeted exams where dose is matched to clinical indication); or iterative reconstruction. DLP: 1036.71 mGy.cm COMPARISON: None available. Lower thorax: Lung bases are clear. Mild cardiomegaly. Air and debris within the distal esophagus and mild dilatation. Liver: Liver is normal size. There is central biliary duct dilatation. The common bile duct measures 15 mm. Tapers normally towards the ampulla. No mass or stone identified on this unenhanced study. Gallbladder: Prior cholecystectomy. Pancreas: Mild atrophy of the pancreas. Spleen: Normal. Adrenal glands: Normal. No mass. Right kidney: Mild atrophy with no obstruction. Left kidney: Mild atrophy with no obstruction. Aorta: Moderate atherosclerotic plaque with no aneurysm. No free fluid, intraperitoneal air or significant lymphadenopathy. GI tract: Nondistended stomach. No small bowel obstruction. Moderate fecal retention throughout the c olon. Mild inspissated material the distal colon. There is a very mild change in caliber in the sigmo id colon but this may be due to underdistention. No adjacent inflammation. Numerous diverticula in th e distal colon with no obstruction. Abdominal wall: Negative. No hernia. Pelvis: No free air. Urinary bladder is moderately distended extending over length of greater than 11 cm. No increased density within the bladder. No pelvic mass identified. Patient is status post esteban cystectomy. The appendix is not definitely identified but there is no evidence for appendicitis. Osseous structures: Posterior lumbar fusion from L3 to L5. Interbody spacers at L3-4 and L4-5. Mild n arrowing within the hip joints bilaterally. CT/CT abdomen pelvis wo con [id number] IMPRESSION: 1. No acute abdominal or pelvic abnormalities are identified. 2. Status post cholecystectomy and hysterectomy. 3. Moderately dilated common bile duct. Common bile duct measures 15 mm. No et iology for the dilatation. May be related to aging and cholecystectomy. If furt her evaluation is necessary consider MRCP evaluation. 4. Moderate constipation and fecal retention. 5. Lack of IV and oral contrast limits evaluation of the abdominal structures.
[2021-08-21 13:52] LABS: Troponin 5 2HR 16.43 ng/L (0-10)
[2021-08-21 13:56] LABS: Troponin 5 2HR Delta 0.43 ABS# (0-10)
--- NOTE | 2021-08-21 14:08 | P.HP_ITS ---
Providers/Chief Complaint Primary Care Provider: Rochelle Khan APN Chief Complaint: FALL/HEMATOMA History of Present Illness Maria Atkins is a 75 year old female who has history of Parkinson's status post Deep stimulator electrodes placement, lives with her son presented to the hospital for evaluationof a fall and generalized weakness. Patient is stating that mostly she uses a walker and a wheelchair, but lately she is feeling extremely tired and fatigued today when her son was trying to stand her up she became lightheaded dizzy and fell on the floor. In the ER she told the PA that she passed out however at the time of evaluation she is stating that she did not black out completely. Son did endorse that she did strike her head and loss of consciousness for a few seconds. She regained her consciousness as soon as she fell, no signs of confusion afterwards, patient is stating that she has been feeling burning sensation mid epigastric region whenever she lays supine. She is due for an EGD. EMS put her on 2 L nasal cannula however she was saturating well on room air at the time of my evaluation. She was awake and alert was able to mention above HPI. She is endorsing new onset of loose stools, she had total 2-3 episodes today. No fever, shortness of breath or pressure sensation like chest pain. Rapid Covid negative. Unremarkable UA, creatinine 1.7, leukopenia, CT abdomen pelvis unremarkable other than constipation no signs of pancreatitis Review of Systems Const: Reports: body aches; Denies: chills Eyes: Denies: change in vision ENMT: Denies: throat pain Card: Reports: lightheadedness and syncope GI: Reports: abdominal pain, heartburn and diarrhea : Denies: flank pain Musc: Denies: neck pain Skin/Breast: Denies: rash Neuro: Denies: headache(s) Psych: Denies: anxiety Endo: Denies: polyuria Xavier/Lymph: Denies: easy bruising All/Imm: Denies: urticaria Medications/Allergies Home Medications Medication Instructions Recorded Confirmed Last Taken Type lorazepam 2 mg tablet 4 mg PO BEDTIME 12/22/19 08/21/21 02/07/21 History tramadol 50 mg tablet 50 mg PO Q4H PRN 12/22/19 08/21/21 12/21/19 History carbidopa ER 50 mg-levodopa 200 mg 1 tab PO QID 01/09/20 08/21/21 02/08/21 History tablet,extended release gabapentin 600 mg tablet 600 mg PO TID 01/09/20 08/21/21 02/08/21 History ropinirole 2 mg tablet 2 mg PO TID 01/09/20 08/21/21 02/08/21 History amantadine HCl 100 mg capsule 100 mg PO DAILY 01/27/21 08/21/21 02/08/21 History oxybutynin chloride 15 mg 15 mg PO DAILY 01/27/21 08/21/21 02/08/21 History tablet,extended release 24 hr pantoprazole 40 mg tablet,delayed 40 mg PO BID 01/27/21 08/21/21 02/08/21 History release potassium 99 mg tablet 99 mg PO DAILY 02/08/21 08/21/21 02/08/21 History citalopram 20 mg tablet 10 mg PO DAILY 08/21/21 08/21/21 Unknown History Allergies Allergy/AdvReac Type Severity Reaction Status Date / Time Sulfa (Sulfonamide Allergy STEVENY-Maryan Verified 01/27/21 16:39 Antibiotics) r PFSH Acute PFSH: Medical History Adult failure to thrive Ataxia CVA (cerebral vascular accident) Dysphagia Parkinson's disease Parkinsons disease Progressive neurologic decline Surgical History H/O lumbosacral spine surgery H/O: hysterectomy History of tonsillectomy and adenoidectomy S/P appendectomy S/P deep brain stimulator placement Social History Smoking and tobacco status: never smoked Vitals/I&O/Wt Last Vital Signs Temp 98.0 F 08/21/21 12:45 Pulse 53 L 08/21/21 10:26 Resp 17 08/21/21 12:45 BP 96/42 08/21/21 12:45 Pulse Ox 93 08/21/21 12:45 Weight last 48 hrs Weight 65.771 kg Physical Exam Narrative: Very pleasant cooperative elderly female She was watching television when entered the room Was able to mention above HPI Awake and alert No signs of focal deficit Denying dysuria chest pain Saturating well on room air No audible stridor or wheezing Grade 2 systolic murmur right second intercostal space Abdomen soft Slight signs of dehydration Good strength of upper and lower extremities No signs of facial droop Data : 08/21/21 10:56 08/21/21 10:56 Micro: Microbiology 08/21/21 12:45 Stool Lactoferrin - Final Stool Occult Blood (FIT) - Final 08/21/21 13:12 Blood Culture - Preliminary Blood SPECIMEN COLLECTED 08/21/21 13:10 Blood Culture - Preliminary Blood SPECIMEN COLLECTED A&P Assessment and plan (1) Syncope: Status: Acute (2) Hypotension: Status: Acute (3) Diarrhea: Status: Acute (4) Acute kidney injury: Status: Acute (5) Parkinson's disease: Status: Acute (6) Progressive neurologic decline: Status: Acute (7) Ataxia: Status: Acute (8) Dehydration: Status: Acute Plan Syncope Check D-dimer QTC prolongation check magnesium level No active chest pain Follow-up with troponin and twelve-lead EKG I do believe this is related to autonomic dysfunction related to Shy- Drager/Parkinson's Added pyridostigmine Dehydration Continue IV fluids Heart rate below 60 she carries history of A. fib not a candidate of anticoagulation WILVER related dehydration anticipating provement with IV fluid hydration, creatinine baseline seems to be around 1.3-1.5 No active signs of UTI CT abdomen pelvis unremarkable Full code Regular diet Hypotension related to hypovolemia Get echo in the morning systolic murmur appreciated on physical exam Attestations Medical Necessity Statement*: Anticipating discharge within 48 hours Time Spent in Patient Care: 35mins Coding Level of Care Code Acute [employer] Service Director for [facility] Fwd Diagnoses Syncope R55 Hypotension I95.9 Diarrhea R19.7 Acute kidney injury N17.9 Parkinson's disease G20 Progressive neurologic decline R29.818 Ataxia R27.0 Dehydration E86.0
[2021-08-21 14:11] LABS: Lipase 103 U/L (13-60)
[2021-08-21 14:28] VITALS: BP 87/45; PULSE 59; RESP 18; TEMP 36.6; O2SAT 94
[2021-08-21] MEDS: heparin 5,000 unit/mL INJ 1 mL 5000 UNIT SUBCUT (15:31)
[2021-08-21] MEDS: sodium chloride 0.9% 1,000 ML 75 ML IV (15:31)
[2021-08-21 15:33] VITALS: BP 93/41; PULSE 58; RESP 16; TEMP 36.7; O2SAT 97
--- NOTE | 2021-08-21 16:37 | ECG_ITS ---
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 Measurements Intervals Willis Rate: 73 P: 38 FL: 181 QRS: 18 QRSD: 116 T: 65 QT: 435 QTc: 480 Interpretive Statements SINUS RHYTHM MODERATE INTRAVENTRICULAR CONDUCTION DELAY Compared to ECG 08/21/2021 13:40:56 Prolonged QT interval no longer present Electronically Signed On 08-21-2021 17:44:03 CONSTRUCTION SECRETARY by Sandy Saeed M.D. [id number]
[2021-08-21 17:18] LABS: Troponin 5 6HR 17.08 ng/L (0-10); Troponin 5 6HR Delta 1.08 ng/L (0-12)
[2021-08-21 17:49] VITALS: BMI 23.1
[2021-08-21] MEDS: carbidopa-levodopa ER 50-200mg Tablet 1 EACH PO ×2 (17:56→21:13)
[2021-08-21] MEDS: pantoprazole DR 40 mg Tablet PO (17:56)
[2021-08-21] MEDS: pyridostigmine 60 mg Tablet PO ×2 (17:58→21:13)
--- NOTE | 2021-08-21 18:26 | PC.NURSE ---
Patient arrived on floor. Admission complete. Vitals stable. Patient son/pipe organ technician is a bedside. Fluids running through IV. No N/V/D since arriving on floor. Will continue to monitor and give report to night nurse.
[2021-08-21 20:00] VITALS: BP 108/62; PULSE 77; RESP 18; TEMP 36.4; O2SAT 97
[2021-08-22 00:18] VITALS: BP 95/52; PULSE 71; RESP 16; TEMP 36.8; O2SAT 93
[2021-08-22] MEDS: heparin 5,000 unit/mL INJ 1 mL 5000 UNIT SUBCUT ×2 (02:40→13:19)
[2021-08-22 03:04] LABS: Basophils % 0.4 %; Eosinophils # 0.1 10^3/uL (0.0-0.8); Eosinophils % 2.3 %; Hematocrit 29.2 % (37.0-47.0); Hemoglobin 9.3 g/dL (11.5-15.3); Lymphocytes # 0.7 10^3/uL (0.8-4.8); Lymphocytes % 12.9 %; Mean Corpuscular HGB Conc 31.8 g/dL (30.0-36.0); Mean Corpuscular Hemoglobin 30.1 pg (28.0-34.0); Mean Corpuscular Volume 94.5 fl (81-99); Mean Platelet Volume 11.7 fL (7.4-10.4); Monocytes # 0.5 10^3/uL (0.2-0.9); Monocytes % 9.5 %; Neutrophils # 4.17 10^3/uL (1.8-7.7); Neutrophils % 74.4 %; Nucleated Red Blood Cells % 0 %; Platelet Count 174 10^3/cmm (130-400); Red Blood Count 3.09 10^6/uL (4.1-5.3); Red Cell Distribution Width 14.1 % (12.1-15.1); White Blood Count 5.6 10^3/uL (4.0-10.0)
[2021-08-22 03:18] LABS: Anion Gap 11.4 (5-19); Blood Urea Nitrogen 27 mg/dL (8-23); Calcium 7.8 mg/dL (8.5-10.5); Carbon Dioxide 25 mmol/L (22-29); Chloride 110 mmol/L (98-107); Glucose 86 mg/dL (65-115); Lipase 21 U/L (13-60); Magnesium 3.2 mg/dL (1.7-2.3); Osmolality Calculated 298 mOsm/kg (285-295); Potassium 4.4 mmol/L (3.5-5.1); Sodium 142 mmol/L (136-145)
[2021-08-22 03:26] LABS: D Dimer 1.36 ug/mIFEU (0-0.59)
[2021-08-22] MEDS: sodium chloride 0.9% 1,000 ML 75 ML IV ×2 (03:41→16:25)
[2021-08-22 04:00] VITALS: BP 115/66; PULSE 72; RESP 16; TEMP 36.7; O2SAT 96
--- NOTE | 2021-08-22 06:36 | PC.NURSE ---
SHIFT SUMMARY Has done well tonight.Woke up early and has been watching TV. Has been up to BSC with assist several times tonight. Denies dizziness when up but is weak and little unsteady. Forgets to call nurse for assist and have kept ;bed alarm on for safety. IV infusing without difficulty at 75ml/hr rate.
[2021-08-22 08:00] VITALS: BP 124/66; PULSE 76; RESP 18; TEMP 36.9; O2SAT 97
[2021-08-22] MEDS: acetaminophen 500 mg Tablet PO ×2 (08:50→22:58)
[2021-08-22] MEDS: oxybutynin chloride XL 5 MG TABLET 15 MG PO (08:51)
[2021-08-22] MEDS: sennosides-docusate Tablet 1 TAB PO (08:51)
[2021-08-22] MEDS: pantoprazole DR 40 mg Tablet PO ×2 (08:51→17:15)
[2021-08-22] MEDS: pyridostigmine 60 mg Tablet PO ×3 (08:51→20:01)
[2021-08-22] MEDS: atorvastatin 40 mg Tablet 20 MG PO (08:51)
[2021-08-22] MEDS: carbidopa-levodopa ER 50-200mg Tablet 1 EACH PO ×4 (08:51→20:01)
--- NOTE | 2021-08-22 09:39 | P.PN_ITS ---
Subjective Subjective: Procedure in good response drug fluids, blood pressure, creatinine, urine output improved She is complaining of headache, will give Tylenol and tramadol Vitals/I&O/Wt Last Vital Signs Temp 98.5 F 08/22/21 08:00 Pulse 76 08/22/21 08:00 Resp 18 08/22/21 08:00 BP 124/66 08/22/21 08:00 Pulse Ox 97 08/22/21 08:00 08/21/21 08/22/21 08/22/21 22:59 06:59 14:59 Intake Total 1000 / 1000 1062.5 / 2062.5 Output Total 300 / 300 1450 / 1750 Balance 700 / 700 -387.5 / 312.5 Weight last 48 hrs Weight 61.235 kg Weight 65.771 kg Physical Exam Narrative: Patient showing good signs of improvement in terms of her dehydration She is awake and alert No acute worsening of Parkinson's features She is complaining of restless legs, nerve pain and headache Nonfocal neuro exam S1, S2 systolic murmur grade 2/6 Abdomen soft No audible stridor or wheezing Doing well on room air Data : 08/22/21 02:20 08/22/21 02:20 Micro: Microbiology 08/21/21 12:45 Stool Lactoferrin - Final Stool C.difficile Toxin B Gene (PCR) - Final Occult Blood (FIT) - Final 08/21/21 13:12 Blood Culture - Preliminary Blood SPECIMEN COLLECTED 08/21/21 13:10 Blood Culture - Preliminary Blood SPECIMEN COLLECTED A&P Assessment and plan (1) Syncope: Status: Acute (2) Hypotension: Status: Acute (3) Diarrhea: Status: Acute (4) Acute kidney injury: Status: Acute (5) Parkinson's disease: Status: Acute (6) Progressive neurologic decline: Status: Acute (7) Dehydration: Status: Acute Plan Continue IV fluid hydration We will give Tylenol and tramadol for headache Magnesium is normal High D-dimer will do CTA chest and venous Dopplers, she is not a good candidate for anticoagulation due to her risk of fall, patient is not hypoxic, not ta chycardic Cardiac diet Full code Family updated DVT prophylaxis Heparin Attestations Medical Necessity Statement*: Discharge tomorrow Time Spent in Patient Care: 20mins Coding Level of Care Code 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
--- NOTE | 2021-08-22 09:41 | USCV_ITS ---
Maria Atkins Age: 75 Gender: F : 1945 Exam Date: 08/22/2021 14:16 Ordering Phys: Johnathan Martinez MD Technologist: SACHIN Exam Location: [facility] [place] Indication: SWELLING HISTORY: Lower extremity swelling. PROCEDURES: Venous duplex imaging was performed in bilateral lower extremities. The following venous structures were evaluated: common femoral vein, profunda vein, proximal portion of the greater saphenous vein, superficial femoral vein, and the popliteal vein. In addition, the posterior tibial and peroneal trunk were evaluated. Serial compression, augmentation maneuvers, and spectral Doppler flow evaluation were performed. FINDINGS: No evidence of DVT seen in any vessel visualized at this time. CONCLUSIONS No evidence of right lower extremity DVT. No evidence of left lower extremity DVT. Tiny popliteal cyst measurng 1.2 x 0.6 x 2.3cm Sancho Juárez MD (Electronically Signed) Final Date: 22 August 2021 16:16 S
--- NOTE | 2021-08-22 09:41 | CT_ITS ---
WS: [id number] CT CHEST ANGIOGRAPHY WITH REFORMATS HISTORY: syncope TECHNIQUE: Contiguous axial images are obtained through the chest during arterial injection of intrav enous contrast. Images are reconstructed to evaluate the pulmonary arteries. MIP imaging also reviewe d. All CT scans at [facility] use at least one of these dose optimization techniques: automat ed exposure control; mA and/or kV adjustment per patient size (includes targeted exams where dose is matched to clinical indication); or iterative reconstruction. CONTRAST: Visipaque 320; 66 mL IV. DLP: 563.18 mGy.cm COMPARISON: 07/31/2018 Good opacification of the pulmonary arteries. No filling defects or pulmonary embolism. Pulmonary art leonides size is normal. Mild atherosclerosis within the thoracic aorta. No aneurysm. Moderate enlargement the LEFT heart chambers. No RIGHT heart strain. No mediastinal or hilar adenopathy. Focal area of mi xed density in the superior RIGHT lower lobe. There is groundglass attenuation and a more focal incre ased subpleural nodule. The nodule measures 9 mm. Mild dependent changes posteriorly on the LEFT. Small hiatal hernia. Prior cholecystectomy. Small amount of increased fluid in the LEFT renal pelvis is new since 2. May be due to an overly distended urinary bladder. No adrenal mass. Again noted is mild common marj e duct dilatation that was described on 08/21/2021. Scoliosis and increase in the thoracic kyphosis. CT/CT angio chest PE protcl [id number] IMPRESSION: 1. No pulmonary embolism. 2. Mixed subpleural density in the RIGHT lower lobe. A mixture of nodular cons olidation and groundglass attenuation. Suspect area of pneumonia with pneumonit is. Small pulmonary infarct may appear similar. No associated embolism is ident ified. Recommend follow-up chest CT in 3 months to ensure resolution. 3. Moderate enlargement of the LEFT heart chambers. 4. New mild dilatation of the LEFT renal pelvis. May be due to an overly diste nded bladder. No ureteral calcification or obstruction was noted on the study f rom 08/21/2021.
[2021-08-22] MEDS: TRAMadol 50 mg Tablet PO (09:56)
--- NOTE | 2021-08-22 10:11 | PC.CHAP ---
Pastoral Care Encounter/Spiritual Assessment Type of Contact [] Declined evaporator repairer visit [] Patient/Family/Request visit [] Outpatient visit [] Follow-up visit [] Physician referral [] Code/Alert [x] Routine visit [] Staff referral [] Actively dying [] Patient sleeping [] Family support [] [] Out of room [] Palliative care [] [] Receiving care in room [] Pre-surgical visit [] Trauma [] Long length of stay [] ICU visit [] Other: Relational/Emotional Strength x[] Patient feels connected with others/family/visitors/staff [] Distress [] Loneliness/isolation [] Abandonment Spirituality of Patient [x] Person of Leta [] Attends Restorationist of their Leta []x Believes in Prayer [] Reads Bible or Anabaptism materials [] There are Spiritual issues to be addressed Concrete Carpenter Interventions [x] Prayer [x] Active listening [x] Non-anxious presence [] Spiritual/emotional support [] Crisis/trauma care [] Spiritual counseling [] Bereavement support [] Provided bereavement packet [] Provided Bible/devotional materials [] Provided toy/stuffed animal, coloring book to patient or family member [] Provided Communion [] Anointing/Plains [] Salvation x[x] Completed spiritual assessment [] Other: Impact on Illness or Injury [] Angry [] Fearful [] Anxious [] Often cries [] Exhaustion [] Unable to work [] Unable to attend church [] Unable to walk/stand [] Unable to read [] Unable to drive [] Unable to eat/drink [] Unable to sleep [] Unable to be with family [] Patient intubated [] Other: Summary Time spent with patient
[2021-08-22] MEDS: iodixanol 320 mg/mL 100mL Btl IV (10:24)
[2021-08-22 16:00] VITALS: BP 140/68; PULSE 75; RESP 15; TEMP 36.8; O2SAT 95
--- NOTE | 2021-08-22 16:27 | PC.NURSE ---
Patient had uneventful shift. Vitals stable. Patient went from chair to bed multiple times. IV patent. Patient did not have bowel movement but had multiple voids. Will continue to monitor and give report to night nurse.
[2021-08-22 19:24] VITALS: BP 147/73; PULSE 73; RESP 18; TEMP 36.4; O2SAT 97
[2021-08-23 00:05] VITALS: BP 128/54; PULSE 69; RESP 18; TEMP 36.5; O2SAT 94
[2021-08-23] MEDS: heparin 5,000 unit/mL INJ 1 mL 5000 UNIT SUBCUT (02:15)
[2021-08-23 03:25] VITALS: BP 144/66; PULSE 74; RESP 16; TEMP 36.7; O2SAT 95
[2021-08-23] MEDS: sodium chloride 0.9% 1,000 ML 75 ML IV (05:51)
[2021-08-23 06:26] LABS: Anion Gap 14.2 (5-19); Blood Urea Nitrogen 13 mg/dL (8-23); Calcium 8.9 mg/dL (8.5-10.5); Carbon Dioxide 23 mmol/L (22-29); Chloride 109 mmol/L (98-107); Glucose 108 mg/dL (65-115); Osmolality Calculated 295 mOsm/kg (285-295); Potassium 4.2 mmol/L (3.5-5.1); Sodium 142 mmol/L (136-145)
[2021-08-23 07:26] VITALS: BP 158/82; PULSE 88; RESP 16; TEMP 36.8; O2SAT 96
[2021-08-23] MEDS: oxybutynin chloride XL 5 MG TABLET 15 MG PO (08:22)
[2021-08-23] MEDS: acetaminophen 500 mg Tablet PO (08:22)
[2021-08-23] MEDS: atorvastatin 40 mg Tablet 20 MG PO (08:22)
[2021-08-23] MEDS: sennosides-docusate Tablet 1 TAB PO (08:22)
[2021-08-23] MEDS: pantoprazole DR 40 mg Tablet PO (08:22)
[2021-08-23] MEDS: carbidopa-levodopa ER 50-200mg Tablet 1 EACH PO (08:22)
[2021-08-23] MEDS: pyridostigmine 60 mg Tablet PO (08:22)
--- NOTE | 2021-08-23 09:37 | P.DS_ITS ---
Discharge Providers Date of Admission: 08/21/21 14:40 Date of Discharge: August 23, 2021 Attending Provider at Admission: Johnathan Martinez MD Attending Provider at Discharge: Johnathan Martinez MD Primary Care Provider: Rochelle Khan APN Diagnoses at Discharge Discharge Diagnosis (1) Syncope: Status: Acute (2) Hypotension: Status: Acute (3) Diarrhea: Status: Acute (4) Acute kidney injury: Status: Acute (5) Parkinson's disease: Status: Acute (6) Progressive neurologic decline: Status: Acute (7) Dehydration: Status: Acute Reason for Visit Reason for Visit: FALL/HEMATOMA Hospital Course Hospital Course 75 female who was admitted for management and evaluation of syncopal event. Patient denied syncope however Friday stating that she lost consciousness for about a few seconds and regained consciousness without any signs of confusion or strokelike symptoms afterwards. At the time of admission she was diagnosed with WILVER related to dehydration. Her blood pressure was soft as well. Kidney function, urine output and blood pressure improved with IV fluid hydration. I did not change any of her Parkinson's medications. Considering high D-dimer CTA chest and venous Doppler requested which were unremarkable for any signs of clot or PE. Twelve-lead EKG did not show persistent QTC prolongation however it was noticed on her first EKG. potassium of 4, magnesium 3.2, normal TSH, she does carry history of A. fib, not a suitable candidate to be on any kind of anticoagulation, her heart rate also remain below 60, not on any AV ivonne blocking agents either. CT abdomen pelvis unremarkable during this hospitalization. Echo showed diastolic dysfunction with preserved ejection fraction. She does have poor p.o. 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 Son was kept updated throughout her hospitalization she will be discharged on 08/23 with instructions and counseling regarding increasing her p.o. intake. I would not resume pyridostigmine which I started during her hospitalization. Physical Exam Narrative: Patient laying supine, blood pressure in front of her She is awake and alert No acute worsening of Parkinson's features Headache improved Nonfocal neuro exam S1, S2 systolic murmur grade 2/6 Abdomen soft No audible stridor or wheezing Doing well on room air Discharge Data Studies Completed and Pending Completed Studies During Hospitalization Category Date Time Status CT abdomen pelvis wo con [id number] Urgent Cat Scan 08/21/21 12:[address] cervical spin wo con* [id number] Urgent Cat Scan 08/21/21 10:[address] head wo con* [id number] Urgent Cat Scan 08/21/21 10:36 Completed CTA PE [CT angio chest PE protcl [id number]] Routine Cat Scan 08/22/21 09:41 Completed XR chest 1V portable [id number] Urgent Exams 08/21/21 10:36 Completed XR shoulder RT min 2V* [id number] Urgent Exams 08/21/21 10:37 [place] [id number] Routine Ultrasound 08/22/21 09:41 Completed CV. echo complete* [id number] Routine Ultrasound 08/21/21 Completed Pending at discharge Category Date Time Status Blood Culture Stat Lab 08/21/21 13:12 Results Radiology Impressions Cervical Spine CT 08/21/21 10:36 IMPRESSION: 1. Severe degenerative changes of scoliosis, disc space narrowing and facet arthritis throughout the cervical spine. 2. No acute fracture. Very similar appearance to the cervical vertebrae as compared to 09/17/2019. Chest X-Ray 08/21/21 10:36 IMPRESSION: 1. Small infiltrate in the left base near the costophrenic angle. This may represent developing pneumonia. Head CT 08/21/21 10:36 IMPRESSION: 1. No acute intracranial hemorrhage or edema. 2. Bilateral thalamic deep stimulator electrodes are unchanged. 3. No fracture. Shoulder X-Ray 08/21/21 10:37 IMPRESSION: 1. No acute fracture or dislocation. 2. Degenerative changes as above. 3. 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 Abdomen/Pelvis CT 08/21/21 12:54 IMPRESSION: 1. No acute abdominal or pelvic abnormalities are identified. 2. Status post cholecystectomy and hysterectomy. 3. Moderately dilated common bile duct. Common bile duct measures 15 mm. No etiology for the dilatation. May be related to aging and cholecystectomy. If further evaluation is necessary consider MRCP evaluation. 4. Moderate constipation and fecal retention. 5. Lack of IV and oral contrast limits evaluation of the abdominal structures. Chest CTA 08/22/21 09:41 IMPRESSION: 1. No pulmonary embolism. 2. Mixed subpleural density in the RIGHT lower lobe. A mixture of nodular consolidation and groundglass attenuation. Suspect area of pneumonia with pneumonitis. Small pulmonary infarct may appear similar. No associated embolism is identified. Recommend follow-up chest CT in 3 months to ensure resolution. 3. Moderate enlargement of the LEFT heart chambers. 4. New mild dilatation of the LEFT renal pelvis. May be due to an overly distended bladder. No ureteral calcification or obstruction was noted on the study from 08/21/2021. Laboratory Results WBC 5.6 10^3/uL (4.0-10.0) 08/22/21 02:20 RBC 3.09 10^6/uL (4.1-5.3) L 08/22/21 02:20 Hgb 9.3 g/dL (11.5-15.3) L 08/22/21 02:20 Hct 29.2 % (37.0-47.0) L 08/22/21 02:20 MCV 94.5 fl (81-99) 08/22/21 02:20 MCH 30.1 pg (28.0-34.0) 08/22/21 02:20 MCHC 31.8 g/dL (30.0-36.0) 08/22/21 02:20 RDW 14.1 % (12.1-15.1) 08/22/21 02:20 Plt Count 174 10^3/cmm (130-400) 08/22/21 02:20 MPV 11.7 fL (7.4-10.4) H 08/22/21 02:20 Neut % (Auto) 74.4 % 08/22/21 02:20 Lymph % (Auto) 12.9 % 08/22/21 02:20 [place] % (Auto) 9.5 % 08/22/21 02:20 Eos % (Auto) 2.3 % 08/22/21 02:20 Baso % (Auto) 0.4 % 08/22/21 02:20 Neut # (Auto) 4.17 10^3/uL (1.8-7.7) 08/22/21 02:20 Lymph # (Auto) 0.7 10^3/uL (0.8-4.8) L 08/22/21 02:20 [place] # (Auto) 0.5 10^3/uL (0.2-0.9) 08/22/21 02:20 Eos # (Auto) 0.1 10^3/uL (0.0-0.8) 08/22/21 02:20 Baso # (Auto) 0.0 10^3/uL (0.0-0.1) 08/22/21 02:20 Nucleated RBC % (auto) 0 % 08/22/21 02:20 Nucleated RBCs # 0.0 /100WBC 08/22/21 02:20 D-Dimer 1.36 ug/mIFEU (0-0.59) H 08/22/21 02:20 Sodium 142 mmol/L (136-145) 08/23/21 05:48 Potassium 4.2 mmol/L (3.5-5.1) 08/23/21 05:48 Chloride 109 mmol/L (98-107) H 08/23/21 05:48 Carbon Dioxide 23 mmol/L (22-29) 08/23/21 05:48 Anion Gap 14.2 (5-19) 08/23/21 05:48 BUN 13 mg/dL (8-23) 08/23/21 05:48 Creatinine 1.0 mg/dL (0.5-0.9) H 08/23/21 05:48 GFR Calculation Not Reportable 08/23/21 05:48 Glucose 108 mg/dL (65-115) 08/23/21 05:48 Calculated Osmolality 295 mOsm/kg (285-295) 08/23/21 05:48 Calcium 8.9 mg/dL (8.5-10.5) 08/23/21 05:48 Magnesium 3.2 mg/dL (1.7-2.3) H 08/22/21 02:20 Total Bilirubin 0.4 mg/dL (0.15-1.2) 08/21/21 10:56 AST 149 U/L (0-32) H 08/21/21 10:56 ALT 17 U/L (0-33) 08/21/21 10:56 Alkaline Phosphatase 145 IU/L (35-105) H 08/21/21 10:56 Troponin T Baseline 16 ng/L (0-10) H 08/21/21 10:56 Troponin T 120 Minute 16.43 ng/L (0-10) H 08/21/21 13:12 Delta Troponin T 0.43 ABS# (0-10) 08/21/21 13:12 Troponin T Hi Sens 6Hr 17.08 ng/L (0-10) H 08/21/21 16:44 Troponin T Hi Sens 6Hr Delta 1.08 ng/L (0-12) 08/21/21 16:44 C-Reactive Protein 60.0 mg/L (0.0-4.9) H 08/22/21 02:20 Total Protein 5.4 g/dL (6.6-8.7) L 08/21/21 10:56 Albumin 3.8 g/dL (3.5-5.2) 08/21/21 10:56 Globulin 1.6 g/dL (1.3-4.6) 08/21/21 10:56 Lipase 21 U/L (13-60) 08/22/21 02:20 Urine Color Yellow (Yellow) 08/21/21 11:45 Urine Appearance Clear (CLEAR) 08/21/21 11:45 Urine pH 5 (5-7) 08/21/21 11:45 Ur Specific [place] 1.015 (1.005-1.030) 08/21/21 11:45 Urine Protein Neg (Negative) 08/21/21 11:45 Urine Glucose (UA) Norm (Normal) 08/21/21 11:45 Urine Ketones Negative (Negative) 08/21/21 11:45 Urine Blood Neg (Negative) 08/21/21 11:45 Urine Nitrate Negative (Negative) 08/21/21 11:45 Urine Bilirubin Neg (Negative) 08/21/21 11:45 Urine Urobilinogen Norm mg/dL (Negative) 08/21/21 11:45 Ur Leukocyte Esterase Negative (Negative) 08/21/21 11:45 SARS-CoV-2 Ag (Rapid) Negative (Negative) 08/21/21 10:58 Vitals Last Vital Signs Temp 98.3 F 08/23/21 07:26 Pulse 88 08/23/21 07:26 Resp 16 08/23/21 07:26 BP 158/82 08/23/21 07:26 Pulse Ox 96 08/23/21 07:26 Discharge Plan Discharge Patient Disposition: Home Condition: Stable Prescriptions: Continued gabapentin 600 mg tablet 600 mg PO TID 0RF carbidopa-levodopa 50-200 mg tablet extended release 1 tab PO QID 0RF ropinirole 2 mg tablet 2 mg PO TID 0RF oxybutynin chloride 15 mg tablet extended release 24 hr 15 mg PO DAILY 0RF pantoprazole 40 mg tablet,delayed release (DR/EC) 40 mg PO BID 0RF amantadine HCl 100 mg capsule 100 mg PO DAILY 0RF citalopram 20 mg tablet 10 mg PO DAILY 0RF tramadol 50 mg tablet 50 mg PO Q4H PRN (Reason: Pain) 0RF lorazepam 2 mg tablet 4 mg PO BEDTIME 0RF Discontinued potassium 99 mg Tablet 99 mg PO DAILY 0RF Discharge Orders: Discharge Order (Routine); Ordered 08/23/21 Ordered By: Johnathan Martinez Referrals: Khan,Rochelle, INSTRUMENTATION AND CONTROL TECHNICIAN [Primary Care Provider] - 7-10 days Discharge Diet: Regular Patient Instructions: Opioid Safety Discharge Attestations Time Spent in Discharge Care*: less than 30 min Status at Discharge: Cognitive status at discharge: mildly impaired cognition , Behavioral status at discharge: cooperative , Quality Metrics Clinical Quality Measures [ No reported AMI, CVA or VTE this stay] Coding Level of Care Code Acute Chg FW DC note Diagnoses Syncope R55 Hypotension I95.9 Diarrhea R19.7 Acute kidney injury N17.9 Parkinson's disease G20 Progressive neurologic decline R29.818 Dehydration E86.0
--- NOTE | 2021-08-23 11:14 | PC.NURSE ---
Discharge teaching and education was given to patient and son, all questions were answered at this time. IV was discontinued. Vitals stable. No prescriptions were given to patient.
[2021-08-23 11:16] VITALS: BP 158/82; PULSE 88; RESP 16; TEMP 36.8; O2SAT 96
== END 2021-08-23 11:17 | disposition home or self-care (01) ==
LOC: ER 14:32 → MEDSURG 16:37
PROVIDERS: Emergency Medicine; Admitting Provider Internal Medicine; Emergency Provider Physician Assistant; PCP Nurse Practitioner Family; Visit Provider Internal Medicine
DX: R55 Syncope and collapse (principal); I95.9 Hypotension, unspecified; R19.7 Diarrhea, unspecified; N17.9 Acute kidney failure, unspecified; G20 Parkinson's disease; R29.818 Other symptoms and signs involving the nervous system; E86.0 Dehydration; R60.9 Edema, unspecified
CPT/HCPCS: 36415; 70450; 71045; 71275; 72125; 73030; 74176; 80048; 80053; 81003; 82274; 83630; 83690; 83735; 84484; 85025; 85378; 86140; 87040; 87426; 87493; 87506; 93005; 93306; 93970; 96360; 96361; 96372; 99285; G0378; J1644; J7030; Q9967

== ENCOUNTER 2022-01-22 16:10 | Outpatient (CLI) | payer OTHER, SELFPAY ==
[2022-01-22 22:43] LABS: Add Urine Culture? No; Add Urine Microscopic? YES; Amorphous Sediment Urine TRACE /hpf; Bacteria Urine TRACE /hpf; Bilirubin Urine Neg (Negative); Blood Urine Neg (Negative); Glucose Urine UA Norm (Normal); Ketones Urine Negative (Negative); Leukocyte Esterase Urine 2+ (Negative); Nitrate Urine Negative (Negative); Protein Urine Neg (Negative); RBC Urine 0-4 /hpf (0-2); Squamous Epithelial Cell Urine 0-4 /hpf (0-5); Urine Appearance Clear (CLEAR); Urine Color Yellow (Yellow); Urobilinogen Urine Norm (Negative); WBC Urine 0-4 /hpf (0-5); pH Urine 5 (5-7)
== END 2022-01-22 16:11 | disposition home or self-care (01) ==
LOC: LAB 16:14
PROVIDERS: PCP Nurse Practitioner Family; Visit Provider Internal Medicine
DX: G20 Parkinson's disease (principal)
CPT/HCPCS: 81001